=== PATIENT | female | born 1960 | race Caucasian/White ===

== ENCOUNTER → 2017-10-02 09:12 | Outpatient (REF) | payer MEDICARE, SELFPAY ==
[2017-10-02 15:53] LABS: Cholesterol 235 mg/dL (50-200); HDL Cholesterol 54 mg/dL (40-60); LDL CHOLESTEROL 162 mg/dL (<100); Triglyceride 137 mg/dL (30-150)
== END ==
LOC: NCHCN 09:12
PROVIDERS: PCP Nurse Practitioner Family; Visit Provider Nurse Practitioner Family
DX: E78.5 Hyperlipidemia, unspecified (principal); E03.9 Hypothyroidism, unspecified
CPT/HCPCS: 80061; 83721

== ENCOUNTER 2017-10-27 14:00 | Outpatient (CLI) | payer MEDICARE, MEDICAID, SELFPAY ==
--- NOTE | 2017-10-27 12:46 | DI.CT_ITS ---
SYMPTOMS/DIAGNOSIS: TRAUMATIC HEADACHE, G44.[address]: Comparison is made with March,. No intracranial hemorrhage, mass or infarct is seen. The ventricles are normal in size. The visualized portions of the sinuses and mastoid air cells appear clear. IMPRESSION: Negative head CT.
== END 2017-10-27 14:20 ==
PROVIDERS: PCP Nurse Practitioner Family; Visit Provider Nurse Practitioner
DX: G44.309 Post-traumatic headache, unspecified, not intractable (principal)
CPT/HCPCS: 70450

== ENCOUNTER 2017-11-20 08:34 | Emergency (ER) | payer MEDICARE, MEDICAID, SELFPAY ==
[2017-11-20 08:50] VITALS: BP 133/84; PULSE 96; RESP 18; TEMP 37; O2SAT 97
[2017-11-20 09:07] LABS: Bilirubin Negative (Negative); Blood Negative (Negative); Clarity Clear; Glucose Negative (Negative); Ketones Negative (Negative); Leukocyte Esterase Negative (Negative); Nitrite Negative (Negative); Specific Gravity 1.015 (1.005-1.025); Urobilinogen 0.2 EU/dL (Up TO 0.2); pH 6.5 (5-8)
--- NOTE | 2017-11-20 09:10 | DI.CT_ITS ---
SYMPTOM/DIAGNOSIS: FELL, BRUISE, BACK PAIN, MIDLINE TENDERNESS ABDOMEN AND PELVIC CT AND LUMBAR SPINE RECONSTRUCTIONS: CT scan of the abdomen and pelvis was performed without intravenous or oral contrast material. Lumbar spine reconstructions were performed and evaluated on the Siemens work station. Mild dependent atelectatic changes are seen in the bases. No basilar pneumothorax is identified. Lack of IV contrast does limit evaluation of the abdominal organs. The unenhanced liver, spleen, pancreas, gallbladder, bile ducts, kidneys, ureters and bladder are unremarkable. The reproductive organs are unremarkable. There is mild atherosclerosis of the abdominal aorta but no aneurysmal dilatation. No significant abdominal or pelvic adenopathy, ascites or pneumoperitoneum is present. The bowel is unremarkable. The patient appears status post appendectomy. CT reconstructions of the lumbar spine were performed. There are nondisplaced fractures involving the right transverse processes of L 1 and L 2. No other fractures are identified. There are mild degenerative changes in the spine. IMPRESSION: 1. Nondisplaced fractures involving the right L 1 and L 2 transverse processes. 2. No evidence of abdominal or pelvic organ injury as seen on this noncontrast examination. These findings were discussed with the ER on the date of the examination.
[2017-11-20] MEDS: Lidocaine 5% Patch 1 PATCH TP (09:19)
[2017-11-20] MEDS: Ketorolac 30 MG/ML VIAL IM (09:20)
--- NOTE | 2017-11-20 09:40 | NUR.NOTE ---
Ambulated to restrrom as per self Nursing Note:
[2017-11-20 12:10] VITALS: BP 133/84; PULSE 96; RESP 18; TEMP 37; O2SAT 97
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
== END 2017-11-20 12:11 | disposition home or self-care (01) ==
PROVIDERS: Emergency Provider Student in an Organized Health Care Education/Training Program; PCP Nurse Practitioner Family
DX: S32.018A Other fracture of first lumbar vertebra, initial encounter for closed fracture (principal); S32.028A Other fracture of second lumbar vertebra, initial encounter for closed fracture; W10.8XXA Fall (on) (from) other stairs and steps, initial encounter; J44.9 Chronic obstructive pulmonary disease, unspecified; F17.210 Nicotine dependence, cigarettes, uncomplicated
CPT/HCPCS: 96372; 99284; 72131; 74176; 81003; 99285; J1885

== ENCOUNTER 2017-12-01 15:21 | Outpatient (REF) | payer MEDICARE, SELFPAY ==
[2017-12-01 17:07] LABS: TSH 5.34 uIU/mL (0.358-3.74)
== END 2017-12-01 15:41 ==
LOC: NCHCN 15:21
PROVIDERS: PCP Nurse Practitioner Family; Visit Provider Nurse Practitioner Family
DX: E03.9 Hypothyroidism, unspecified (principal)
CPT/HCPCS: 84443

== ENCOUNTER → 2017-12-08 09:36 | Outpatient (BNVA) | payer MEDICARE, MEDICAID, SELFPAY | PROVIDERS: PCP Nurse Practitioner Family; Visit Provider Nurse Practitioner Adult Health | DX: M25.532 Pain in left wrist; I10 Essential (primary) hypertension; J44.9 Chronic obstructive pulmonary disease, unspecified | CPT/HCPCS: 95909; 99203 ==

== ENCOUNTER 2018-05-07 10:02 | Outpatient (REF) | payer MEDICARE, MEDICAID, SELFPAY ==
[2018-05-07 14:10] LABS: Anion Gap 7.3 mmol/L (3-11); BUN 12 mg/dL (7-18); CO2 27.7 mmol/L (21.0-32.0); CREATININE 0.87 mg/dL (0.55-1.02); Chloride 100 mmol/L (98-107); Cholesterol 320 mg/dL (50-200); Glucose 94 mg/dL (70-100); HDL Cholesterol 46 mg/dL (40-60); LDL CHOLESTEROL 238 mg/dL (<100); Potassium 4.5 mmol/L (3.5-5.1); Sodium 135 mmol/L (136-145); TSH 1.15 uIU/mL (0.358-3.74); Triglyceride 132 mg/dL (30-150)
== END 2018-05-07 10:22 ==
LOC: NCHCN 10:02
PROVIDERS: PCP Nurse Practitioner Family; Visit Provider Nurse Practitioner Family
DX: E78.5 Hyperlipidemia, unspecified (principal); E03.9 Hypothyroidism, unspecified; I10 Essential (primary) hypertension
CPT/HCPCS: 80048; 80061; 83721; 84443

== ENCOUNTER 2018-06-08 13:07 | Outpatient (REF) | payer MEDICARE, MEDICAID, SELFPAY ==
[2018-06-08 21:16] LABS: Anion Gap 7.3 mmol/L (3-11); BUN 10 mg/dL (7-18); CO2 28.7 mmol/L (21.0-32.0); CREATININE 0.76 mg/dL (0.55-1.02); Chloride 99 mmol/L (98-107); Glucose 90 mg/dL (70-100); Potassium 4.6 mmol/L (3.5-5.1); Sodium 135 mmol/L (136-145)
== END 2018-06-08 13:27 ==
LOC: NCHCN 13:07
PROVIDERS: PCP Nurse Practitioner Family; Visit Provider Nurse Practitioner Family
DX: R11.0 Nausea (principal)
CPT/HCPCS: 80048

== ENCOUNTER 2018-08-30 09:48 | Outpatient (CLI) | payer MEDICARE, MEDICAID, SELFPAY ==
--- NOTE | 2018-08-30 09:48 | DI.RAD_ITS ---
SYMPTOMS/DIAGNOSIS: EVAL RT KNEE PAIN RIGHT KNEE: Four views. Comparison 12/24/15. There is mild periarticular spurring of the posterior patella. The joint spaces are otherwise unremarkable. The bones are intact. There again seen two screws in the proximal tibia. The soft tissues are unremarkable. IMPRESSION: Minimal degenerative changes of the right knee.
== END 2018-08-30 10:08 ==
PROVIDERS: Referring Provider Nurse Practitioner Family; Visit Provider Student in an Organized Health Care Education/Training Program
DX: M25.561 Pain in right knee (principal); M17.11 Unilateral primary osteoarthritis, right knee; G89.29 Other chronic pain; J44.9 Chronic obstructive pulmonary disease, unspecified; F17.210 Nicotine dependence, cigarettes, uncomplicated; I10 Essential (primary) hypertension
CPT/HCPCS: 99203; 99214; 73564

== ENCOUNTER 2018-09-08 08:45 | Outpatient (CLI) | payer MEDICARE, MEDICAID, SELFPAY ==
--- NOTE | 2018-09-08 09:48 | DI.MRI_ITS ---
SYMPTOM/DIAGNOSIS: RIGHT KNEE PAIN, M25.561 RIGHT KNEE: Routine noncontrast examination was performed. There is artifact from two lag screws in the proximal and anterior tibial tuberosity. There is no evidence of a meniscal tear. The anterior cruciate and posterior cruciate ligaments are intact as are the medial and lateral collateral ligaments, extensor mechanism, medial and lateral retinaculum and popliteus tendon. The muscles show normal signal and size, no significant muscular fatty atrophy is identified. There is a small joint effusion. No significant popliteal cyst is seen. No soft tissue mass is appreciated. There is a cartilaginous defect seen at the junction of the medial and lateral patella facets. The articular cartilage shows mild thinning in the medial femoral tibial joint space. The underlying marrow signal is within normal limits. No evidence of an occult fracture or avascular necrosis. IMPRESSION: 1. 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 2. No evidence of a meniscal or ligament tear 3. Artifact from the patient's orthopaedic hardware in the anterior tibial tuberosity.
== END 2018-09-08 09:05 ==
PROVIDERS: PCP Nurse Practitioner Family; Visit Provider Student in an Organized Health Care Education/Training Program
DX: M25.561 Pain in right knee (principal); M22.41 Chondromalacia patellae, right knee; M25.461 Effusion, right knee
CPT/HCPCS: 73718

== ENCOUNTER → 2018-09-10 09:23 | Outpatient (BNVA) | payer MEDICARE, MEDICAID, SELFPAY | PROVIDERS: PCP Nurse Practitioner Family; Visit Provider Student in an Organized Health Care Education/Training Program | DX: M23.91 Unspecified internal derangement of right knee (principal); J44.9 Chronic obstructive pulmonary disease, unspecified; I10 Essential (primary) hypertension | CPT/HCPCS: 99213 ==

== ENCOUNTER 2018-12-27 10:46 | Outpatient (REF) | payer MEDICARE, MEDICAID, SELFPAY ==
[2018-12-27 23:14] LABS: Epithelial Cells Few HPF (Negative); WBC 0-2 HPF (0-5)
[2018-12-27 23:15] LABS: Bacteria Few HPF (Negative); C & S Indicated? No; Casts Negative LPF (Negative); Crystals Negative HPF (Negative); Mucus Negative (Negative)
== END 2018-12-27 11:06 ==
LOC: NCHCN 10:46
PROVIDERS: PCP Nurse Practitioner Family; Visit Provider Nurse Practitioner Family
DX: R10.9 Unspecified abdominal pain (principal)
CPT/HCPCS: 81015

== ENCOUNTER 2018-12-27 14:48 | Outpatient (CLI) | payer MEDICARE, MEDICAID, SELFPAY ==
[2018-12-27 15:51] LABS: ALT 27 U/L (14-59); AST 16 U/L (15-37); Albumin 3.6 g/dL (3.4-5.0); Alkaline Phosphatase 76 U/L (46-116); Anion Gap 7.2 mmol/L (3-11); BUN 15 mg/dL (7-18); Bilirubin, Total 0.2 mg/dL (0.2-1.0); CO2 28.8 mmol/L (21.0-32.0); CREATININE 0.96 mg/dL (0.55-1.02); Calcium 8.6 mg/dL (8.5-10.1); Chloride 103 mmol/L (98-107); Glucose 94 mg/dL (70-100); Potassium 4.2 mmol/L (3.5-5.1); Sodium 139 mmol/L (136-145); Total Protein 7.1 g/dL (6.4-8.2)
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
[2018-12-27 16:06] LABS: HCT 39.9 % (36.0-46.0); HGB 13.3 g/dL (12.0-15.5); Mean Corp. HGB Concentration 33.3 g/dL (32.0-36.0); Mean Corpuscular Hemoglobin 30.2 pg (27.0-33.0); Mean Corpuscular Volume 90.7 fL (80-95); Platelet Count 333 x1000/uL (130-400); RBC Distribution Width 14.4 % (11.7-14.6); White Blood Cell Count 8.74 k/cumm (4.4-10.8)
[2018-12-27] MEDS: Omnipaque 350 MG/ML 100 ML BTL IJ (16:16)
--- NOTE | 2018-12-27 16:49 | DI.VRAD_ITS ---
PROCEDURE INFORMATION: Exam: CT Abdomen And Pelvis With Contrast Exam date and time: 12/27/2018 4:10 PM Clinical history: 58 years old, female; Abdominal pain; Patient HX: Abd pain, recent abd blunt trauma; Additional info: ? Intra-abd bleed TECHNIQUE: Imaging protocol: Computed tomography of the abdomen and pelvis with intravenous contrast. COMPARISON: CT Specials^TRAUMA ABDOMEN PELVIS WITHOUT CONTRAST (Adult) 11/20/2017 10:28 AM FINDINGS: Lungs: The visualized lung bases are within normal limits. Heart: The visualized portions of the heart and pericardium are unremarkable. Liver: The liver is unremarkable. Gallbladder and bile ducts: The gallbladder is contracted. Pancreas: The pancreas is within normal limits. Spleen: The spleen is unremarkable. Adrenals: The adrenal glands are unremarkable. Kidneys and ureters: The kidneys are within normal limits. Stomach and bowel: There are feces within the colon which are suspicious for constipation. Appendix: The patient is status post appendectomy. Intraperitoneal space: Unremarkable. No free air. No significant fluid collection. Vasculature: There are phleboliths within the pelvis. There are arteriosclerotic changes of the aorta. Lymph nodes: No enlarged lymph nodes. Bladder: The urinary bladder is unremarkable. Reproductive: The uterus and ovaries are within normal limits. Bones/joints: There are degenerative changes of the thoracic and lumbar spines. Soft tissues: There is a tiny fat containing umbilical hernia. IMPRESSION: Suspect some degree of constipation. Osseous findings as above. Dictated and Authenticated by: Jesus Young MD. Ordering:LORENE Clifford MD
== END 2018-12-27 15:08 ==
PROVIDERS: PCP Nurse Practitioner Family; Visit Provider Nurse Practitioner Family
DX: R10.9 Unspecified abdominal pain (principal); I70.0 Atherosclerosis of aorta; K59.00 Constipation, unspecified; S30.1XXD Contusion of abdominal wall, subsequent encounter
CPT/HCPCS: 80053; 85027; 74177; J3490

== ENCOUNTER 2019-01-01 09:59 | Emergency (ER) | payer MEDICARE, MEDICAID, SELFPAY ==
[2019-01-01 10:02] VITALS: BP 161/123; PULSE 112; RESP 20; TEMP 37; O2SAT 96
--- NOTE | 2019-01-01 10:22 | DI.RAD_ITS ---
EXAM: XR HUMERUS RT INDICATION: s/p fall, r/o acute fracture. COMPARISON: LEFT WRIST COMPLETE from 12/24/2015 TECHNIQUE: 2D digital imaging was performed. FINDINGS: Exam is limited by the patient's body habitus. There is a fracture extending mainly transversely through the surgical neck of the humerus. There is some impaction. There is a fracture fragment involving the lesser tuberosity which is mildly displa janice. No fractures are seen distally in the humerus. The visualized portions of the right ribs appea r intact. There is no glenohumeral dislocation. AC joint shows spurring but no abnormal widening. IMPRESSION: Comminuted mildly impacted fracture of the surgical neck of the humerus.
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
[2019-01-01] MEDS: Ibuprofen 600 MG TAB PO (10:26)
--- NOTE | 2019-01-01 10:29 | DI.RAD_ITS ---
EXAM: XR SHOULDER RT COMPLETE 2+V INDICATION: s/p fall onto ice, r/o acute fracture. COMPARISON: No exams were available for comparison TECHNIQUE: 2D digital imaging was performed. FINDINGS: There is a fracture seen extending transversely through the surgical neck of the humerus. The lesse r tuberosities fractured as a separate fragment. There is some impaction. There is no glenohumeral dislocation. No glenoid fracture is visible however, the glenoid is not optimally visualized. AC j oint is not widened. IMPRESSION: Comminuted fracture of the proximal humerus.
--- NOTE | 2019-01-01 11:03 | DI.RAD_ITS ---
EXAM: XR ELBOW RT COMPLETE INDICATION: s/p fall, r/o acute fracture. COMPARISON: No exams were available for comparison TECHNIQUE: 2D digital imaging was performed. FINDINGS: No fracture or dislocation is seen. The joint spaces are well maintained. IMPRESSION: Negative right elbow
[2019-01-01] MEDS: traMADol 50 MG TAB PO (11:34)
[2019-01-01] MEDS: Lidocaine 5% Patch 1 PATCH TP (11:45)
--- NOTE | 2019-01-01 11:58 | DI.VRAD_ITS ---
PROCEDURE INFORMATION: Exam: XR Right Elbow Exam date and time: 01/01/2019 11:01 AM Clinical history: 58 years old, female; Other: S/P fall, R/O acute fracture TECHNIQUE: Imaging protocol: XR Right elbow. Views: 3 or more views. COMPARISON: CR XR HUMERUS RT 01/01/2019 10:49 AM FINDINGS: Bones/joints: Normal. No acute fracture or dislocation. Soft tissues: Normal. IMPRESSION: No acute findings. Dictated and Authenticated by: Kristyn Stephens MD. Ordering:GURPREET Barreto MD
--- NOTE | 2019-01-01 11:59 | DI.VRAD_ITS ---
PROCEDURE INFORMATION: Exam: XR Right Shoulder Exam date and time: 01/01/2019 11:01 AM Clinical history: 58 years old, female; Other: S/P fall onto ice, R/O acute fracture TECHNIQUE: Imaging protocol: XR Right shoulder. Views: 2 or more views. COMPARISON: No relevant prior studies available. FINDINGS: Bones/joints: Nondisplaced fracture humeral neck with displaced fracture lesser tuberosity. No glenohumeral dislocation. Soft tissues: Normal. IMPRESSION: Nondisplaced fracture humeral neck with displaced fracture lesser tuberosity. Dictated and Authenticated by: Kristyn Stephens MD. Ordering:GURPREET Barreto MD
--- NOTE | 2019-01-01 11:59 | DI.VRAD_ITS ---
PROCEDURE INFORMATION: Exam: XR Right Humerus Exam date and time: 01/01/2019 11:01 AM Clinical history: 58 years old, female; Other: S/P fall, R/O acute fracture TECHNIQUE: Imaging protocol: XR Right humerus Views: 2 or more views. COMPARISON: No relevant prior studies available. FINDINGS: Bones/joints: Nondisplaced fracture humeral neck with displaced fracture lesser tuberosity. Soft tissues: Normal. IMPRESSION: Nondisplaced fracture humeral neck with displaced fracture lesser tuberosity. Dictated and Authenticated by: Kristyn Stephens MD. Ordering:GURPREET Barreto MD
[2019-01-01 12:17] VITALS: BP 148/96; PULSE 100; RESP 18; O2SAT 96
== END 2019-01-01 12:11 | disposition home or self-care (01) ==
PROVIDERS: Emergency Provider Physician Assistant; PCP Nurse Practitioner Family
DX: S42.214A Unspecified nondisplaced fracture of surgical neck of right humerus, initial encounter for closed fracture (principal); S42.254A Nondisplaced fracture of greater tuberosity of right humerus, initial encounter for closed fracture; W00.0XXA Fall on same level due to ice and snow, initial encounter; I10 Essential (primary) hypertension; J44.9 Chronic obstructive pulmonary disease, unspecified
CPT/HCPCS: 99284; 73030; 73060; 73080; L3650

== ENCOUNTER → 2019-01-03 09:15 | Outpatient (BNVA) | payer MEDICARE, MEDICAID, SELFPAY | PROVIDERS: PCP Nurse Practitioner Family; Referring Provider Nurse Practitioner Family; Visit Provider Student in an Organized Health Care Education/Training Program | DX: S42.201A Unspecified fracture of upper end of right humerus, initial encounter for closed fracture (principal); W01.0XXA Fall on same level from slipping, tripping and stumbling without subsequent striking against object, initial encounter; J44.9 Chronic obstructive pulmonary disease, unspecified; I10 Essential (primary) hypertension; F17.210 Nicotine dependence, cigarettes, uncomplicated | CPT/HCPCS: 99214 ==

== ENCOUNTER 2019-01-03 09:51 | Outpatient (CLI) | payer MEDICARE, MEDICAID, SELFPAY ==
--- NOTE | 2019-01-03 10:00 | DI.CT_ITS ---
EXAM: 3D RECON ON CT WORKSTATION CLINICAL HISTORY: RT SHOULDER FX TECHNIQUE: The images were acquired in the axial plane. Coronal and sagittal as well as 3D reconstr uctions were performed. COMPARISON: XR SHOULDER RT COMPLETE 2+V from 01/01/2019 CT UPPER EXTREMITY RT WO from 01/03/2019 FINDINGS: There is a fracture seen extending mainly transversely through the surgical neck of the humerus. The bones appear osteoporotic. No underlying lytic lesion is visible. There is mild comminution at the fracture site. The lesser tubercle is fractured as a separate fragment. There is no significant an gulation. There is some impaction. The glenoid and scapula as well as visualized portions of the cl avicle and ribs appear intact. IMPRESSION: Comminuted fracture of the proximal humerus with fracture of the lesser tubercle. No glenoid fractu re or dislocation is seen.
== END 2019-01-03 10:11 ==
PROVIDERS: PCP Nurse Practitioner Family; Visit Provider Student in an Organized Health Care Education/Training Program
DX: S42.351A Displaced comminuted fracture of shaft of humerus, right arm, initial encounter for closed fracture (principal); S42.261A Displaced fracture of lesser tuberosity of right humerus, initial encounter for closed fracture; M81.0 Age-related osteoporosis without current pathological fracture; W01.0XXA Fall on same level from slipping, tripping and stumbling without subsequent striking against object, initial encounter; J44.9 Chronic obstructive pulmonary disease, unspecified; F17.210 Nicotine dependence, cigarettes, uncomplicated; I10 Essential (primary) hypertension
CPT/HCPCS: 76376; 99214; 73200

== ENCOUNTER 2019-01-20 09:36 | Outpatient (CLI) | payer MEDICARE, MEDICAID, SELFPAY ==
--- NOTE | 2019-01-20 09:29 | DI.RAD_ITS ---
EXAM: XR SHOULDER RT COMPLETE 2+V INDICATION: F/U FRACTURE. COMPARISON: XR SHOULDER RT COMPLETE 2+V from 01/01/2019 TECHNIQUE: 2D digital imaging was performed. FINDINGS: There has been no change in the alignment of the proximal humeral fracture given differences in proje ction.
== END 2019-01-20 09:56 ==
PROVIDERS: PCP Nurse Practitioner Family; Referring Provider Nurse Practitioner Family; Visit Provider Student in an Organized Health Care Education/Training Program
DX: S42.294D Other nondisplaced fracture of upper end of right humerus, subsequent encounter for fracture with routine healing (principal); X58.XXXD Exposure to other specified factors, subsequent encounter
CPT/HCPCS: 99213; 73030

== ENCOUNTER 2019-01-25 09:06 | Outpatient (CLI) | payer MEDICARE, MEDICAID, SELFPAY ==
--- NOTE | 2019-01-25 08:08 | DI.US_ITS ---
EXAM: US HERNIA CLINICAL HISTORY: ABD PAIN, R10.9, ? UMBILICAL HERNIA, BLUNT TRAUMA TOAREA TECHNIQUE: Ultrasound performed using standard protocol. FINDINGS: There is an ovoid, hyperechoic area in the area of the recent trauma to the anterior abdominal wall measuring 2.7 x 1.4 x 2.9 cm. This could represent post-traumatic changes in the fat. A fatty contain ing hernia cannot be excluded. No bowel is seen herniating. There is no drainable hematoma or absce ss. IMPRESSION: Question of post-traumatic abnormality at the anterior abdominal wall fat. A fatty containing hernia is also possibility. A CT could be performed for further evaluation if clinically indicated.
== END 2019-01-25 09:26 ==
PROVIDERS: PCP Nurse Practitioner Family; Visit Provider Nurse Practitioner Family
DX: R10.9 Unspecified abdominal pain (principal); S30.1XXA Contusion of abdominal wall, initial encounter
CPT/HCPCS: 76857

== ENCOUNTER → 2019-01-31 14:25 | Outpatient (BNVA) | payer MEDICARE, MEDICAID, SELFPAY | PROVIDERS: PCP Nurse Practitioner Family; Referring Provider Nurse Practitioner Family; Visit Provider Surgery | DX: S30.1XXA Contusion of abdominal wall, initial encounter (principal); W22.8XXA Striking against or struck by other objects, initial encounter; J44.9 Chronic obstructive pulmonary disease, unspecified; F17.210 Nicotine dependence, cigarettes, uncomplicated; I10 Essential (primary) hypertension | CPT/HCPCS: 99201; 99213 ==

== ENCOUNTER 2019-02-24 12:29 | Outpatient (CLI) | payer MEDICARE, MEDICAID, SELFPAY ==
--- NOTE | 2019-02-24 12:01 | DI.RAD_ITS ---
EXAM: XR SHOULDER RT COMPLETE 2+V CLINICAL HISTORY: F/U FRACTURE TECHNIQUE: COMPARISON: XR SHOULDER RT COMPLETE 2+V from 01/20/2019 FINDINGS: Three views were obtained and show previously described proximal humeral fracture with no gross inter marvel change in alignment of the fracture fragments in comparison with examination of January 20. Th ere is mild callus formation at the fracture site. IMPRESSION:
== END 2019-02-24 12:49 ==
PROVIDERS: PCP Nurse Practitioner Family; Referring Provider Nurse Practitioner Family; Visit Provider Student in an Organized Health Care Education/Training Program
DX: S42.351D Displaced comminuted fracture of shaft of humerus, right arm, subsequent encounter for fracture with routine healing; S42.26 Fracture of lesser tuberosity of humerus; W01.0XXD Fall on same level from slipping, tripping and stumbling without subsequent striking against object, subsequent encounter
CPT/HCPCS: 99213; 73030

== ENCOUNTER 2019-07-14 11:35 | Emergency (ER) | payer MEDICARE, MEDICAID, SELFPAY ==
[2019-07-14 11:40] VITALS: BP 121/95; PULSE 106; RESP 16; TEMP 37.2; O2SAT 96
--- NOTE | 2019-07-14 11:45 | DI.RAD_ITS ---
EXAM: 2D digital imaging was performed. CLINICAL HISTORY: No bowel movement for 4 days. COMPARISON: CT CT ABDOMEN PELVIS W from 12/27/2018 TECHNIQUE: Supine views of the abdomen performed. FINDINGS: BOWEL GAS PATTERN: The colon appears redundant. Increased stool is seen throughout the colon. There is no abnormal small the bowel dilatation. There is no gastric distension. The visualized portions of the lung bases appear clear. No free air is seen. CALCIFICATIONS: No radiopaque calcifications. OSSEOUS STRUCTURES: Normal for age. IMPRESSION: 1. Large quantity of fecal material.. Nonobstructive bowel gas pattern. DATA REPOSITORY: RADIATION DOSE DELIVERED:
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
[2019-07-14 13:12] VITALS: PULSE 95; RESP 16; TEMP 37.2; O2SAT 96
[2019-07-14] MEDS: Magnesium Citrate 300 ML BTL 150 ML PO (13:21)
== END 2019-07-14 13:15 | disposition home or self-care (01) ==
PROVIDERS: Emergency Provider Physician Assistant; PCP Nurse Practitioner Family
DX: K59.09 Other constipation (principal); R10.30 Lower abdominal pain, unspecified; I10 Essential (primary) hypertension; J44.9 Chronic obstructive pulmonary disease, unspecified; F17.210 Nicotine dependence, cigarettes, uncomplicated
CPT/HCPCS: 99283; 74019

== ENCOUNTER 2020-08-23 16:00 | Outpatient (CLI) | payer MEDICARE, MEDICAID, SELFPAY ==
--- NOTE | 2020-08-23 10:09 | DI.RAD_ITS ---
Exam(s) XR LUMBAR SPINE COMPLETE EXAM: XR LUMBAR SPINE COMPLETE CLINICAL HISTORY: CHRONIC BACK PAIN, M54.89, 2018 CT SHOWS 2 NONDISPLACED FX L1L2 TRANSVERSE. TECHNIQUE: 2D digital imaging was performed. COMPARISON: No exams were available for comparison FINDINGS: BONES: No fracture or destructive lesion. Vertebral bodies are unremarkable. Saft-sw-khiwdijd facet degenerative changes are seen, greatest at L5-S1.. DISKS: Intervertebral disc spaces are maintained. Minimal endplate osteophytes. ALIGNMENT: Lumbar spinal alignment is within normal limits. SOFT TISSUE: Mild calcification abdominal aorta. Large quantity of stool. IMPRESSION: Mild degenerative changes, greater of the facet joints in the lower lumbar region. DATA REPOSITORY: RADIATION DOSE DELIVERED:
== END 2020-08-23 16:20 ==
PROVIDERS: PCP Nurse Practitioner Family; Visit Provider Nurse Practitioner Family
DX: M47.816 Spondylosis without myelopathy or radiculopathy, lumbar region (principal); Z87.81 Personal history of (healed) traumatic fracture
CPT/HCPCS: 72110

== ENCOUNTER 2020-09-12 09:05 | Outpatient (CLI) | payer MEDICARE, MEDICAID, SELFPAY ==
[2020-09-12 12:23] LABS: Abs Immature Grans 0.03 10^3/uL (0.0-0.06); Absolute Basophil Count 0.08 10^3/uL (0.0-0.2); Absolute Eosinophil Count 0.11 10^3/uL (0.0-0.7); Absolute Lymphocyte Count 2.84 10^3/uL (1.2-3.4); Absolute Monocyte Count 0.76 10^3/uL (0.1-0.8); Absolute Neutrophil Count 2.76 10^3/uL (1.2-6.7); Basophils % 1.2; Eosinophils % 1.7; HCT 39.6 % (36.0-46.0); Immature Grans % 0.5; Lymphocytes % 43.2; MCHC 32.8 % (32.0-36.0); MCV 88.2 fL (80-95); MPV 9.5 fL (8.0-11.0); Monocytes % 11.6; Neutrophils % 41.8; Nucleated RBC 0 %; Platelet Count 316 10^3/uL (130-400); RBC 4.49 10^6/uL (3.93-5.22); RDW 13.2 % (11.7-14.6); RDW-SD 43.2 fL; WBC 6.58 10^3/uL (4.4-10.8)
[2020-09-12 13:15] LABS: ALT 27 U/L (14-59); AST 26 U/L (15-37); Albumin 3.5 g/dL (3.4-5.0); Alkaline Phosphatase 88 U/L (46-116); Anion Gap 10.6 mmol/L (3-11); BUN 8 mg/dL (7-18); Bilirubin, Total 0.3 mg/dL (0.2-1.0); CO2 26.4 mmol/L (21.0-32.0); CREATININE 0.8 mg/dL (0.55-1.02); Calcium 8.6 mg/dL (8.5-10.1); Calculated LDL 188 mg/dL (<100); Chloride 101 mmol/L (98-107); Cholesterol 255 mg/dL (<200); Glucose 67 mg/dL (74-106); HDL Cholesterol 47 mg/dL (40-60); Potassium 3.7 mmol/L (3.5-5.1); Sodium 138 mmol/L (136-145); TSH 3.32 uIU/mL (0.36-3.74); Total Protein 6.5 g/dL (6.4-8.2); Triglyceride 103 mg/dL (<150)
[2020-09-12 13:23] LABS: *AMPHETAMINES SCREEN URINE Negative (Negative); *BARBITURATES SCREEN URINE Negative (Negative); *BENZODIAZEPINES SCREEN URINE Negative (Negative); Cannabinoids THC Negative (Negative); Cocaine Screen,Urine Negative (Negative); METHADONE URINE SCREEN Negative (Negative); OPIATES URINE SCREEN Negative (Negative)
[2020-09-12 13:24] LABS: Tricyclic Antidepressants Negative (Negative)
== END 2020-09-12 09:06 | disposition home or self-care (01) ==
LOC: LOS 09:07
PROVIDERS: PCP Nurse Practitioner Family; Visit Provider Nurse Practitioner Psychiatric/Mental Health
DX: F32.1 Major depressive disorder, single episode, moderate (principal); Z79.899 Other long term (current) drug therapy
CPT/HCPCS: 36415; 80053; 80061; 80307; 80361; 80362; 80365; 84443; 85025

== ENCOUNTER 2020-09-17 16:01 | Outpatient (REF) | payer MEDICARE, MEDICAID, SELFPAY | END 2020-09-17 16:02 | disposition home or self-care (01) | LOC: NCHCN 16:01 | PROVIDERS: PCP Nurse Practitioner Family; Visit Provider Nurse Practitioner Family | DX: N39.0 Urinary tract infection, site not specified (principal) | CPT/HCPCS: 87077; 87086; 87186 ==

== ENCOUNTER 2020-10-10 01:44 | Outpatient (CLI) | payer MEDICARE, MEDICAID, SELFPAY ==
--- NOTE | 2020-10-10 11:25 | DI.MAMMO_ITS ---
Exam(s) MAMMO SCREENING EXAM: MAMMO SCREENING CLINICAL HISTORY: SCREENING, Z12.39. TECHNIQUE: Bilateral full field digital CC and MLO mammographic images were obtained with 3D tomosyn thesis and utilizing computer aided detection (CAD). COMPARISON: Prior mammograms dating back to 2013, the most recent being July 2017. FINDINGS: There has been no significant change in the appearance and distribution of the fibroglandular tissue. There are no new spiculated masses nor malignant appearing microcalcification groups. Benign microcalcifications are unchanged There is no significant architectural distortion nor skin thickening-retraction. IMPRESSION: No radiographic evidence of malignancy. BI-RADS Category 1 - Negative Breast Density - Category B - Scattered areas of fibroglandular density Breast density Category C or D implies that the patient has dense breast tissue. Dense breast tissue can make it harder to find cancer on a mammogram. Dense breast tissue is also associated with an incr eased risk of breast cancer. This information about the result of the mammogram report was provided to the patient to raise their awareness. Use this report when you speak with the patient about their risks for breast cancer, which includes their family history. At that time, you may recommend additional screening tests (Ultrasoun d or MRI) as these tests may add significant information. A negative radiographic report should not delay biopsy if a dominant or clinically suspicious mass is present. Up to ten percent of cancers are not identified on mammography. A negative report may reinforce clinical impression. Adenosis and dense breasts may obscure an underlying neoplasm. False positive reports average 6 to 10%. Patient will receive a letter notifying them of these results.
== END 2020-10-10 02:04 ==
PROVIDERS: PCP Nurse Practitioner Family; Visit Provider Nurse Practitioner Family
DX: Z12.31 Encounter for screening mammogram for malignant neoplasm of breast (principal)
CPT/HCPCS: 77063; 77067

== ENCOUNTER 2020-10-17 10:45 | Outpatient (REF) | payer MEDICARE, MEDICAID, SELFPAY ==
--- NOTE | 2020-10-17 08:30 | PAPFT_PTH ---
PATIENT: Magdalene Shi LOC: [facility] U#:[id number] AGE/SX: 59/F ROOM: RE10/17/[address]: Venessa Schneider : 1960 BED: DIS: 10/17/2020 SPEC #: [id number] RECD: 10/18/20 13:16 STATUS: ISIDRO REJeanna #: [id number] IVAN: 10/17/20 08:[address]: Venessa Schneider DEPT: [facility] Cytology RECD BY: Le Graham Tissues: 1 - CX/ENDOCX FOR PAP SMEARS Procedures: PAP THIN PREP/UVM Screening HPV DNA PROBE Comments: [id number]
[2020-10-19 14:34] LABS: Chlamydia Result Negative (Negative); GC Result Negative (Negative)
== END 2020-10-17 10:46 | disposition home or self-care (01) ==
LOC: NCHCN 10:45
PROVIDERS: PCP Nurse Practitioner Family; Visit Provider Nurse Practitioner Family
DX: Z01.419 Encounter for gynecological examination (general) (routine) without abnormal findings (principal); Z11.3 Encounter for screening for infections with a predominantly sexual mode of transmission; H10.32 Unspecified acute conjunctivitis, left eye; Z11.51 Encounter for screening for human papillomavirus (HPV); Z12.4 Encounter for screening for malignant neoplasm of cervix
CPT/HCPCS: 87491; 87591; 88142; 87624

== ENCOUNTER 2020-11-28 12:08 | Outpatient (REF) | payer MEDICARE, MEDICAID, SELFPAY ==
[2020-11-28 14:48] LABS: ALT 29 U/L (14-59); AST 20 U/L (15-37); HDL Cholesterol 55 mg/dL (40-60); LDL CHOLESTEROL 176 mg/dL (<100)
[2020-11-28 15:13] LABS: Creatine Kinase 116 U/L (26-192)
== END 2020-11-28 12:09 | disposition home or self-care (01) ==
LOC: NCHCN 12:08
PROVIDERS: PCP Nurse Practitioner Family; Visit Provider Nurse Practitioner Family
DX: E78.5 Hyperlipidemia, unspecified (principal)
CPT/HCPCS: 82550; 83721; 83718; 84450; 84460

== ENCOUNTER 2020-12-02 15:12 | Emergency (ER) | payer MEDICARE, MEDICAID, SELFPAY ==
[2020-12-02 15:14] VITALS: BP 145/100; PULSE 90; RESP 18; TEMP 36.7; O2SAT 99
--- NOTE | 2020-12-02 15:15 | DI.RAD_ITS ---
Exam(s) XR FOOT RT COMPLETE EXAM: XR FOOT RT COMPLETE CLINICAL HISTORY: pain post dropping item on foot, metatarsal. TECHNIQUE: 2D digital imaging was performed of the right foot. Three images were obtained. AP, obl ique and lateral views were obtained. COMPARISON: CR RIGHT FOOT COMPLETE from 11/07/2013 FINDINGS: BONES: No acute fracture is present. No bony destructive lesion is seen. There is a small plantar taniya caneal spur. JOINTS: No dislocation present. Mild degenerative changes are seen at the 1st MTP joint. SOFT TISSUE: Normal. IMPRESSION: No acute fracture or dislocation. DATA REPOSITORY: RADIATION DOSE DELIVERED:
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
[2020-12-02] MEDS: Ibuprofen 600 MG TAB PO (16:43)
--- NOTE | 2020-12-02 17:10 | DI.VRAD_ITS ---
PROCEDURE INFORMATION: Exam: XR Right Foot Exam date and time: 12/02/2020 3:47 PM Age: 59 years old Clinical indication: Other: Pain post dropping item on foot, metatarsal TECHNIQUE: Imaging protocol: XR Right foot. Views: 3 or more views. COMPARISON: MR FOOT^FOREFOOT 09/08/2018 9:16 AM FINDINGS: Bones/joints: No evidence for a fracture or other osseous lesion. Alignment is anatomic. The joint spaces are maintained. Os perineum. Calcaneal spur. Soft tissues: Unremarkable. IMPRESSION: Unremarkable radiographic study. No fracture identified. Dictated and Authenticated by: Vickey Landrum MD. Ordering:SOPHIA Lujan MD
--- NOTE | 2020-12-02 18:45 | NUR.NOTE ---
ortho boot applied to the right foot Nursing Note:
--- NOTE | 2020-12-02 18:46 | NUR.NOTE ---
ortho shoe size mens small applied to the right foot Nursing Note:
== END 2020-12-02 17:09 | disposition home or self-care (01) ==
PROVIDERS: Emergency Provider Registered Nurse Emergency; PCP Nurse Practitioner Family
DX: S90.31XA Contusion of right foot, initial encounter (principal); W20.8XXA Other cause of strike by thrown, projected or falling object, initial encounter
CPT/HCPCS: 99283; 73630

== ENCOUNTER 2021-02-13 16:19 | Outpatient (REF) | payer MEDICARE, MEDICAID, SELFPAY ==
[2021-02-15 11:46] LABS: COVID-19 RT-PCR UVMMC Result Negative (Negative)
== END 2021-02-13 16:20 | disposition home or self-care (01) ==
LOC: LBN 16:19
PROVIDERS: PCP Nurse Practitioner Family; Visit Provider Physician Assistant Medical
DX: Z20.822 Contact with and (suspected) exposure to COVID-19 (principal); R09.89 Other specified symptoms and signs involving the circulatory and respiratory systems
CPT/HCPCS: U0003; U0005

== ENCOUNTER → 2021-06-07 00:46 | Outpatient (CLI) | payer OTHER, MEDICAID, SELFPAY | PROVIDERS: PCP Nurse Practitioner Family; Visit Provider Nurse Practitioner Family ==

== ENCOUNTER 2021-06-25 20:28 | Outpatient (REF) | payer OTHER, MEDICAID, SELFPAY ==
[2021-06-26 15:31] LABS: COVID-19 RT-PCR UVMMC Result Negative (Negative)
== END 2021-06-25 20:29 | disposition home or self-care (01) ==
LOC: LBN 20:28
PROVIDERS: PCP Nurse Practitioner Family; Visit Provider Nurse Practitioner Family
DX: J34.89 Other specified disorders of nose and nasal sinuses (principal); Z20.822 Contact with and (suspected) exposure to COVID-19
CPT/HCPCS: U0003; U0005

== ENCOUNTER 2021-07-10 17:07 | Emergency (ER) | payer OTHER, MEDICAID, SELFPAY ==
[2021-07-10 17:09] VITALS: BP 141/65; PULSE 96; RESP 18; TEMP 37.1; O2SAT 96
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
--- NOTE | 2021-07-10 17:30 | RT.EKG_ITS ---
APPROVED REPORT Exam: Resting ECG Reason for Exam: Midepigastric pain Patient Location: E HR:89 bpm ECG Measurements Heart Rate 89 AXIS LA 143 P 50 QRSd 71 QRS 21 QT 343 T 27 QTc 417 Conclusion Sinus rhythm...normal P axis, V-rate 60- 99 sinus rhythm, normal axis, normal intervals, nonischemic
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
[2021-07-10 17:57] LABS: Abs Immature Grans 0.05 10^3/uL (0.0-0.06); Absolute Basophil Count 0.08 10^3/uL (0.0-0.2); Absolute Eosinophil Count 0.11 10^3/uL (0.0-0.7); Absolute Lymphocyte Count 3.23 10^3/uL (1.2-3.4); Absolute Monocyte Count 0.83 10^3/uL (0.1-0.8); Absolute Neutrophil Count 4.91 10^3/uL (1.2-6.7); Basophils % 0.9; Eosinophils % 1.2; HCT 44.4 % (36.0-46.0); HGB 14.8 g/dL (11.2-15.7); Immature Grans % 0.5; Lymphocytes % 35.1; MCHC 33.3 % (32.0-36.0); MCV 90 fL (80-95); MPV 8.9 fL (8.0-11.0); Neutrophils % 53.3; Platelet Count 354 10^3/uL (130-400); RBC 4.93 10^6/uL (3.93-5.22); RDW 13.1 % (11.7-14.6); RDW-SD 43.6 fL; WBC 9.21 10^3/uL (4.4-10.8)
[2021-07-10 18:01] LABS: Bilirubin Negative (Negative); Blood Trace-lysed (Negative); Clarity Clear (Clear); Glucose Negative (Negative); Ketones Negative (Negative); Leukocyte Esterase Small (Negative); Nitrite Negative (Negative); Urobilinogen 0.2 EU/dL (Up TO 0.2)
[2021-07-10 18:09] LABS: Bacteria Few HPF (Negative); Epithelial Cells Moderate HPF (Negative); Other Cells Few Yeast (Negative); RBC 0-2 HPF (0-2)
[2021-07-10 18:10] LABS: C & S Indicated? Yes; Crystals Negative HPF (Negative); Mucus Negative (Negative)
[2021-07-10 18:14] LABS: Troponin I < 50 ng/L (<or=60)
[2021-07-10] MEDS: LORazepam 0.5 MG TAB PO ×2 (18:15→21:05)
[2021-07-10 18:18] LABS: ALT 22 U/L (14-59); AST 20 U/L (15-37); Albumin 3.8 g/dL (3.4-5.0); Alkaline Phosphatase 108 U/L (46-116); BUN 13 mg/dL (7-18); Bilirubin, Total 0.3 mg/dL (0.2-1.0); Calcium 8.7 mg/dL (8.5-10.1); Chloride 105 mmol/L (98-107); Estimated GFR 56.95 (mL/min/1.73m2); Glucose 77 mg/dL (74-106); Potassium 3.6 mmol/L (3.5-5.1); Sodium 140 mmol/L (136-145); Total Protein 7.6 g/dL (6.4-8.2)
[2021-07-10 18:19] LABS: *AMPHETAMINES SCREEN URINE Negative (Negative); *BARBITURATES SCREEN URINE Negative (Negative); *BENZODIAZEPINES SCREEN URINE Negative (Negative); Cannabinoids THC Negative (Negative); Cocaine Screen,Urine Positive (Negative); METHADONE URINE SCREEN Negative (Negative); OPIATES URINE SCREEN Negative (Negative)
[2021-07-10 18:20] LABS: Tricyclic Antidepressants Negative (Negative)
[2021-07-10 18:37] LABS: Acetaminophen < 2 ug/mL (10-30)
--- NOTE | 2021-07-10 19:30 | DI.RAD_ITS ---
Exam(s) XR CERVICAL SP SOLORZANO TRAUMA 2-3V EXAM: XR CERVICAL SP SOLORZANO TRAUMA 2-3V CLINICAL HISTORY: C-Spine Pain. TECHNIQUE: 2D digital imaging was performed. Three views were obtained. COMPARISON: No exams were available for comparison FINDINGS: BONES: No fracture or destructive lesion. There are endplate osteophytes from C3-4 through C5-6 C7. DISKS: There is disc space narrowing at C5-6 and C6-C7. Facet arthropathy is present. ALIGNMENT: Cervical spinal alignment is within normal limits. The odontoid and atlantoaxial articulat ions are normal. SOFT TISSUE: Normal. The lung apices are clear. IMPRESSION: Moderate degenerative changes in the cervical spine. DATA REPOSITORY: RADIATION DOSE DELIVERED:
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
[2021-07-10 21:19] LABS: ETHANOL BLOOD 25.6 mg/dL (<10)
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
== END 2021-07-10 23:26 | disposition home or self-care (01) ==
PROVIDERS: Emergency Provider Registered Nurse Emergency; PCP Nurse Practitioner Family
DX: R10.13 Epigastric pain (principal); F31.9 Bipolar disorder, unspecified; F60.3 Borderline personality disorder; S40.022A Contusion of left upper arm, initial encounter; Y04.2XXA Assault by strike against or bumped into by another person, initial encounter; F10.129 Alcohol abuse with intoxication, unspecified; Y90.5 Blood alcohol level of 100-119 mg/100 ml; M54.2 Cervicalgia
CPT/HCPCS: 80053; 80307; 93005; 99285; 72040; 74022; 80320; 80329; 81003; 81015; 84484; 85025; 87086; 93010; 99284

== ENCOUNTER → 2021-07-17 19:09 | Outpatient (CLI) | payer OTHER, MEDICAID, SELFPAY ==
--- NOTE | 2021-07-17 | DI.RAD_ITS ---
Exam(s) XR KNEE RT 3V AP,LAT,JO EXAM: XR KNEE RT 3V AP,LAT,JO CLINICAL HISTORY: RT KNEE PAIN, M25.561, S/P FALL, SWELLING, DECREASED FLEXION, PAIN W/AMB TECHNIQUE: COMPARISON: CR XR knee RT 4V AP,lat,jo,pat from 08/30/2018 FINDINGS: Three views were obtained. There are fixation screws of the proximal tibia unchanged in alignment in comparison with prior examination of August 2018. There does not appear to be a significant knee join t effusion. No other bony or soft tissue abnormality seen. IMPRESSION: RADIATION DOSE DELIVERED: Total DLP
== END ==
PROVIDERS: PCP Nurse Practitioner Family; Visit Provider Nurse Practitioner Family
DX: M25.561 Pain in right knee (principal); M25.461 Effusion, right knee
CPT/HCPCS: 73562

== ENCOUNTER 2021-11-30 08:31 | Emergency (ER) | payer OTHER, MEDICAID, SELFPAY ==
--- NOTE | 2021-11-30 08:30 | DI.RAD_ITS ---
Exam(s) XR ANKLE RT COMPLETE XR TIB/FIB RT XR FOOT RT COMPLETE EXAM: XR TIB/FIB RT and XR foot RT complete and XR ankle RT complete CLINICAL HISTORY: fall. TECHNIQUE: 2D digital imaging was performed of the right foot, ankle tibia and fibula. Eight images were obtained. AP oblique and lateral views were obtained. COMPARISON: CR,XR XR FOOT RT COMPLETE from 11/30/2021 CR,XR XR ANKLE RT COMPLETE from 11/30/2021 FINDINGS: BONES: No acute fracture is present. Postsurgical changes are seen in the proximal tibia. There is an oblique mildly displaced fracture of the distal fibula at the level of the ankle mortise. There i s posterior angulation of the distal fracture. No bony destructive lesion is seen. There is a small plantar calcaneal spur. Mild degenerative changes are seen in the foot. SOFT TISSUE: There is soft tissue swelling laterally around the ankle. IMPRESSION: There is a mildly displaced fracture of the lateral malleolus with overlying soft tissue swelling. DATA REPOSITORY: RADIATION DOSE DELIVERED:
[2021-11-30 08:33] VITALS: BP 158/98; PULSE 101; RESP 18; TEMP 36.8; O2SAT 98
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
[2021-11-30] MEDS: Ibuprofen 600 MG TAB PO (08:50)
[2021-11-30] MEDS: Acetaminophen 325 MG TAB 650 MG PO (08:50)
--- NOTE | 2021-11-30 09:41 | DI.VRAD_ITS ---
PROCEDURE INFORMATION: Exam: XR Right Foot Exam date and time: 11/30/2021 9:01 AM Age: 60 years old Clinical indication: Injury or trauma; Fall; Sprain or strain; Foot; Right TECHNIQUE: Imaging protocol: Radiologic exam of the Right foot. Views: 3 or more views. COMPARISON: CR XR FOOT RT COMPLETE 12/02/2020 3:45 PM FINDINGS: Bones/joints: No fractures or suspicious osseous lesions are identified. There are bipartite medial and lateral sesamoids. Os naviculare and os peroneum are noted. Alignment is anatomic. There are changes of mild osteoarthritis in the 1st metatarsophalangeal joint, with mild joint space narrowing and small marginal osteophytes. There is a moderate-sized plantar calcaneal spur. Soft tissues: Unremarkable. IMPRESSION: No fracture or malalignment in the right foot. Dictated and Authenticated by: Marianela Feliz MD. Ordering:SATYA Gaona MD
--- NOTE | 2021-11-30 09:43 | DI.VRAD_ITS ---
PROCEDURE INFORMATION: Exam: XR Right Ankle Exam date and time: 11/30/2021 8:57 AM Age: 60 years old Clinical indication: Injury or trauma; Fall; Sprain or strain; Ankle; Right TECHNIQUE: Imaging protocol: Radiologic exam of the Right ankle. Views: 3 or more views. COMPARISON: CR RIGHT ANKLE COMPLETE 03/26/2015 6:58 PM FINDINGS: Bones/joints: There is an oblique mildly displaced fracture of the distal fibular metadiaphysis (lateral malleolus). Alignment is anatomic. Joint spaces are maintained. The ankle mortise is intact. There is a moderate-sized plantar calcaneal spur. Soft tissues: Localized severe soft tissue swelling overlying the lateral malleolus. IMPRESSION: Mildly displaced fracture of the right lateral malleolus with severe overlying soft tissue swelling. Dictated and Authenticated by: Marianela Feliz MD. Ordering:SATYA Gaona MD
--- NOTE | 2021-11-30 09:44 | DI.VRAD_ITS ---
PROCEDURE INFORMATION: Exam: XR Right Tibia and Fibula Exam date and time: 11/30/2021 8:57 AM Age: 60 years old Clinical indication: Injury or trauma; Fall; Sprain or strain; Lower leg; Right TECHNIQUE: Imaging protocol: Radiologic exam of the Right tibia and fibula. Views: 2 views. COMPARISON: CR XR ANKLE RT COMPLETE 11/30/2021 8:57 AM FINDINGS: Bones/joints: Again noted is a mildly displaced fracture of the distal fibular metadiaphysis (lateral malleolus of the ankle). No additional fractures are identified. Two partially threaded cannulated screws are noted in the proximal tibial metadiaphysis. Soft tissues: Severe soft tissue swelling overlying the lateral malleolus. IMPRESSION: Mildly displaced fracture of the distal right fibular metadiaphysis (lateral malleolus) with severe overlying soft tissue swelling. Dictated and Authenticated by: Marianela Feliz MD. Ordering:SATYA Gaona MD
== END 2021-11-30 10:01 | disposition home or self-care (01) ==
PROVIDERS: Emergency Provider Nurse Practitioner Family; PCP Nurse Practitioner Family
DX: S82.61XA Displaced fracture of lateral malleolus of right fibula, initial encounter for closed fracture (principal); J45.909 Unspecified asthma, uncomplicated; F17.200 Nicotine dependence, unspecified, uncomplicated; Z79.51 Long term (current) use of inhaled steroids; W19.XXXA Unspecified fall, initial encounter
CPT/HCPCS: 29515; 99284; 73590; 73610; 73630

== ENCOUNTER 2021-12-10 10:50 | Outpatient (CLI) | payer OTHER, MEDICAID, SELFPAY ==
--- NOTE | 2021-12-10 10:30 | DI.RAD_ITS ---
Exam(s) XR ANKLE RT COMPLETE EXAM: XR ANKLE RT COMPLETE CLINICAL HISTORY: ANKLE FX F/U. TECHNIQUE: 2D digital imaging was performed. COMPARISON: CR,XR XR ANKLE RT COMPLETE from 11/30/2021 FINDINGS: 3 views Again noted is oblique fracture distal fibula. This appears essentially unchanged from the prior pieter ges of 11/30/2021. Is no widening of the ankle mortise on these nonstress views. Talar dome unremar kable. Moderate-large inferior calcaneal spur is noted with adjacent corticated calcification in the plantar fascia. IMPRESSION: DATA REPOSITORY: RADIATION DOSE DELIVERED:
== END 2021-12-10 10:51 | disposition home or self-care (01) ==
LOC: DIORS 10:50
PROVIDERS: PCP Nurse Practitioner Family; Referring Provider Nurse Practitioner Family; Visit Provider Student in an Organized Health Care Education/Training Program
DX: S82.891A Other fracture of right lower leg, initial encounter for closed fracture; W55.09XA Other contact with cat, initial encounter
CPT/HCPCS: 99214; 73610

== ENCOUNTER 2022-01-01 19:45 | Outpatient (REF) | payer OTHER, MEDICAID, SELFPAY ==
[2022-01-01 15:37] LABS: HCT 46.8 % (36.0-46.0); HGB 15.7 g/dL (11.2-15.7); MCH 31.8 pg (27.0-33.0); MCHC 33.5 % (32.0-36.0); MCV 95 fL (80-95); MPV 9.6 fL (8.0-11.0); Platelet Count 341 10^3/uL (130-400); RBC 4.94 10^6/uL (3.93-5.22); RDW 13.2 % (11.7-14.6); WBC 9.66 10^3/uL (4.4-10.8)
[2022-01-01 16:04] LABS: ALT 28 U/L (14-59); AST 27 U/L (15-37); Albumin 4.4 g/dL (3.4-5.0); Alkaline Phosphatase 124 U/L (46-116); Anion Gap 10.5 mmol/L (3-11); BUN 13 mg/dL (7-18); Bilirubin, Total 0.5 mg/dL (0.2-1.0); CO2 25.5 mmol/L (21.0-32.0); CREATININE 0.8 mg/dL (0.55-1.02); Calcium 9.7 mg/dL (8.5-10.1); Calculated LDL 241 mg/dL (<100); Chloride 98 mmol/L (98-107); Cholesterol 334 mg/dL (<200); Estimated GFR 84.82 (mL/min/1.73m2); Glucose 85 mg/dL (74-106); HDL Cholesterol 67 mg/dL (40-60); Potassium 4.4 mmol/L (3.5-5.1); Sodium 134 mmol/L (136-145); Total Protein 7.9 g/dL (6.4-8.2); Triglyceride 132 mg/dL (<150)
[2022-01-02 08:39] LABS: GGT 39 U/L (5-55)
== END 2022-01-01 19:46 | disposition home or self-care (01) ==
LOC: NCHCN 19:45
PROVIDERS: PCP Nurse Practitioner Family; Visit Provider Nurse Practitioner Family
DX: E78.5 Hyperlipidemia, unspecified (principal); R79.89 Other specified abnormal findings of blood chemistry; I10 Essential (primary) hypertension; F19.10 Other psychoactive substance abuse, uncomplicated; R53.83 Other fatigue
CPT/HCPCS: 80053; 80061; 85027; 82977

== ENCOUNTER 2022-01-14 10:15 | Outpatient (CLI) | payer OTHER, MEDICAID, SELFPAY ==
--- NOTE | 2022-01-14 10:00 | DI.RAD_ITS ---
Exam(s) XR ANKLE RT COMPLETE EXAM: XR ANKLE RT COMPLETE CLINICAL HISTORY: right ankle f/u. TECHNIQUE: 2D digital imaging was performed of the right ankle. Three images were obtained. AP, la teral and oblique views were obtained. COMPARISON: CR XR ANKLE RT COMPLETE from 12/10/2021 FINDINGS: BONES: There has been no change in alignment of the distal right fibular fracture. Callus formation h as developed about the fracture consistent with some interval healing. No bony destructive lesion is seen. There is a some for on the plantar surface of the calcaneus. JOINTS: The ankle mortise is normally aligned. SOFT TISSUE: Soft tissue swelling laterally. IMPRESSION: Healing distal right fibular fracture. DATA REPOSITORY: RADIATION DOSE DELIVERED:
== END 2022-01-14 10:16 | disposition home or self-care (01) ==
LOC: DIORS 10:15
PROVIDERS: PCP Nurse Practitioner Family; Referring Provider Nurse Practitioner Family; Visit Provider Student in an Organized Health Care Education/Training Program
DX: S82.891A Other fracture of right lower leg, initial encounter for closed fracture (principal); X58.XXXA Exposure to other specified factors, initial encounter
CPT/HCPCS: 99213; 73610

== ENCOUNTER 2022-02-25 13:22 | Outpatient (CLI) | payer OTHER, MEDICAID, SELFPAY ==
--- NOTE | 2022-02-25 13:15 | DI.RAD_ITS ---
Exam(s) XR ANKLE RT COMPLETE EXAM: XR ANKLE RT COMPLETE CLINICAL HISTORY: right ankle fx f/u. TECHNIQUE: 2D digital imaging was performed of the right ankle. Three images were obtained. AP, la teral and oblique views were obtained. COMPARISON: CR XR ANKLE RT COMPLETE from 01/14/2022 FINDINGS: BONES: There has been no change in alignment of the distal fibular fracture. There has been continue d interval healing present. The fracture line is still visualized. No new fracture is identified. No bony destructive lesion is seen. There is a plantar calcaneal spur. JOINTS: The ankle mortise is normally aligned. SOFT TISSUE: Normal. IMPRESSION: Healing distal right fibular fracture. DATA REPOSITORY: RADIATION DOSE DELIVERED:
== END 2022-02-25 13:23 | disposition home or self-care (01) ==
LOC: DIORS 13:22
PROVIDERS: PCP Nurse Practitioner Family; Referring Provider Nurse Practitioner Family; Visit Provider Student in an Organized Health Care Education/Training Program
DX: S82.891D Other fracture of right lower leg, subsequent encounter for closed fracture with routine healing (principal); X58.XXXD Exposure to other specified factors, subsequent encounter
CPT/HCPCS: 99213; 73610

== ENCOUNTER → 2022-03-13 08:02 | Outpatient (BNVA) | payer OTHER, MEDICAID, SELFPAY | PROVIDERS: PCP Nurse Practitioner Family; Referring Provider Nurse Practitioner Family; Visit Provider Nurse Practitioner Adult Health | DX: R51.9 Headache, unspecified (principal); F39 Unspecified mood [affective] disorder; Z87.820 Personal history of traumatic brain injury; F17.210 Nicotine dependence, cigarettes, uncomplicated; I10 Essential (primary) hypertension | CPT/HCPCS: 64405; 99204; 99214 ==

== ENCOUNTER 2022-03-21 00:29 | Outpatient (CLI) | payer OTHER, MEDICAID, SELFPAY ==
--- OUTSIDE RECORDS SUMMARY | 2022-03-21 00:32 | XMS_ITS ---
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 Active 57584715 Problem Paresthesia 782.0 Active 74287446 Problem Meralgia 355.1 Active 82098381 paresthetica Problem Low back pain 724.2 Active 031557 007 Problem Carpal tunnel 354.0 Active 222790 09 syndrome Problem HEPATITIS C CARRIER V02.62 Active 170886137 Problem Lumbar spondylosis M47.816 Active 2 15919368 Problem 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 Active 309 40033 Problem Cervical radiculitis 723.4 Active 48481183 Problem Cervical spondylosis 721.1 Active 51042283 with myelopathy Problem Abnormal findings on 793.99 Active 241930376 radiological or other exams of body structure, NEC 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 ALLERGIES Substance Reaction Event Type Date Status Codeine, Sonata Unknown Non Drug Allergy Oct, Active Morphine Sulfate Unknown Non Drug Allergy Oct, Active ENCOUNTERS Encounter Location Date Diagnosis [address] Mar, [facility] [address] [place] [id number] Jan, [facility] [address] [place] [id number] Nov, [facility] [address] [place], [place] [id number] [address] 17 Oct, [address] [place], [place] [id number] [address] 16 Oct, 2020 Lumbar spon dylosis M47.[address] [place], [place] [id number] [address] Oct, [facility] [address] [place] [id number] Oct, Lumbar spondyl osis M47.816 [facility] [address] [place] [id number] [facility] [address] [place] [address] Oct, Carpal tunnel syndrome [place], [place] [id number] [facility] [address] [place] [address] Oct, [place] [id number] [facility] [address] [place] [address] Aug, [place], [place] [id number] [facility] [address] [place] [address] May, [place], [place] [id number] [facility] [address] [place] [address] Apr, [place], [place] [id number] [facility] [address] [place] [address] Mar, [place], [place] [id number] [facility] [address] [place] [address] Mar, Cervic al spondylosis with [facility] myelopathy 721.1 ; Cervical [place] radiculitis 723. 4 ; [id number] Abnormal finding s on radiological or other exams of body structur e, NEC 793.99 ; Meralgi a paresthetica 355 .1 ; Paresthesia 782. 0 ; HEPATITIS C APARICIO IER V02.62 ; Cryoglobulinem ia 273.2 ; Peripheral neuro benja 356.9 ; Ataxia 438.84 ; Low back pain 724.2 and D JASMINA KNEE 715.[address] Feb, [address] [place], [place] [id number] [facility] [address] [place] [address] Feb, Cervic al spondylosis with [facility] myelopathy 721.1 ; Cervical [place] radiculitis 723. 4 ; [id number] Abnormal finding s on radiological or other exams of body structur e, NEC 793.99 ; Meralgi a paresthetica 355 .1 ; Paresthesia 782. 0 ; HEPATITIS C APARICIO IER V02.62 ; Cryoglobulinem ia 273.2 ; Peripheral neuro benja 356.9 ; Ataxia 438.84 and Low back pain 724.2 [facility] [address] [place] [address] Dec, [facility] Road [address] [place], [place] [id number] [facility] [address] [place] [address] Dec, [facility] [address] Suite [place], [place] [id number] [facility] [address] [place] [address] Nov, [facility] [address] [place], [place] [id number] [facility] [address] [place] [address] Nov, Meralg ia paresthetica 355.1 [facility] ; Paresthesia 78 2.0 ; [place] HEPATITIS C APARICIO IER V02.62 [id number] ; Cryoglobulinem ia 273.2 ; Peripheral neuro benja 356.9 and Ataxia 438.8 4 IMMUNIZATIONS No Known Immunizations SOCIAL HISTORY Never Assessed REASON FOR REFERRAL FUNCTIONAL STATUS PLAN OF CARE VITAL SIGNS Height 63 in 2020-10-17 Height N/A in 2012-03-11 Height 63 in 2011-12-16 Weight 194 lbs 2020-10-17 Weight 145 lbs 2012-03-11 Weight 144 lbs 2011-12-16 Heart Rate 65 /min 2020-10-17 Heart Rate 88 /min 2012-03-11 Heart Rate 84 /min 2011-12-16 Oximetry 98 2020-10-17 BMI 34.36 kg/m2 2020-10-17 BMI 25.68 kg/m2 2012-03-11 BMI 25.51 kg/m2 2011-12-16 Blood pressure systolic 114 mm Hg 2020-10-17 Blood pressure diastolic 80 mm Hg 2020-10-17 MEDICATIONS Medication Instructions Dosage Frequency Start End Duration Statu s Date Date Mobic 7.5 MG Orally Once a 1 tablet 24h 30 day(s) Ac tive day Ambien 10 MG Orally Once a 1 tablet at 24h A ctive day bedtime as needed Gabapentin 800 MG Orally Once a 1 tablet 24h 30 day( s) Active day Nystatin 879256 Mouth/Throat 4 ml 6h 30 day(s) A ctive UNIT/ML Four times a day Ventolin HFA 108 Inhalation 1 puff as 4h Ac tive (90 Base) MCG/ACT every 4 hrs needed Venlafaxine HCl Orally Once a 1 tablet 24h 30 day(s) Active 100 MG day with food Minipress 1 MG Orally Once a 1 capsule 24h 30 day(s) Active day at bedtime Atorvastatin Orally Once a 1 tablet 24h 30 day(s) Ac tive Calcium 20 MG day Omeprazole 20 MG Orally Once a 1 capsule 24h 30 day( s) Active day 30 minutes before morning meal hydrOXYzine Orally every 6 1 capsule 6h 30 day(s) A ctive Pamoate 50 MG hrs as needed LORazepam 1 MG Orally Once a 1 tablet at 24h Active day bedtime as needed AeroChamber MV Active Methylphenidate Orally Twice a 1 tablet on 12h Active HCl 20 MG day an empty stomach AzaSite 1 % as directed Active Advair HFA 230-21 Inhalation 2 puffs 12h Act willow MCG/ACT Twice a day traZODone HCl 100 Orally Once a 1 tablet at 24h 30 d ay(s) Active MG day bedtime PROCEDURES Procedure Date Ordered Result Body Site PMR NRV CNDJ TST 3-4 STUDIES Oct 27, 2012 PMR MUSC TEST DONE W/N TEST COMP Oct 27, 2012 RESULTS Name Result Date Reference Range MR SPINE CERVICAL WO CONTRAST 2012-04-23 XR KNEE 4 VIEW RIGHT 2012-04-02 TSH 2011-12-16 THYROID STIMULATING HORMONE 0.52 0.34 -5.60 SEDIMENTATION RATE 2011-12-16 ERYTHROCYTE SEDIMENTATION RATE 16 < =30 GLYCOHEMOGLOBIN A1C 2011-12-16 HEMOGLOBIN A1c 5.4 4.4-6.[address] GLUCOSE 108 70-105 VITAMIN B12 & FOLATE 2011-12-16 GLUCOSE 2011-12-16 PROTEIN ELECTROPHORESIS, SERUM ([id number]) Protein, Total, Serum 6.2 6.0-8.5 Albumin 3.9 3.2-5.6 Jxsxj-2-Qtvmnnsk 0.2 0.1-0.4 Jbjtf-8-Jqwlgjlg 0.6 0.4-1.2 Beta Globulin 0.8 0.6-1.3 Gamma Globulin 0.6 0.5-1.6 M-Kb Not Observed Not Observed Globulin, Total 2.3 2.0-4.5 A/G Ratio 1.7 0.7-2.0 Please note: Comment REASON FOR VISIT [facility]- F/U, Question about ablation , [facility] - 6 WEEK F/UP BILAT LUMBAR MBB, [facility] - 6 WEEK F/UP BILAT LUMBAR MBB., told patient to call, [facility]- bilateral medial branch block targeting L3, 4 and 5.,no auth req'd // Procedure/ NEEDS ORDER, [facility]- Back pain, R UE pain with paresthesias, appt, appt with neurology [facility] Ortiz, wants appt, MRI cervical spine, x ray knee, ROSITA fu right thigh numbness, pain , ROSITA f/u Meralgia Paresthetica and ? PN, ROSITA 1 mo fu, ROSITA 1 mo fu, fyi, SPEP , b12,folate, tsh, sed rate, glucose, hgbA1c, ROSITA Numbness leg and foot Insurance Providers [facility] Health Member Patient Patient Patient Patient Patient Subscriber Subscriber Subscriber Group Insurance Plan Plan Plan Plan ID Relationship Address Phone Name Date of ID Name Date of No Type Insurance Insurance Insurance Coverage to Subscriber Address Phone Name Dates MEDICARE [phone] MEDICARE self Magdalene [id number] PART A [id number] [place] [address] [place] [phone] NGS self Amgdalene [id number] MEDICARE [id number] [place] [address] MED[address]ARE [phone] MEDICARE self Magdalene [id number] Jose Guadalupe [facility] [address] MEDICARE [phone] MEDICARE self Magdalene [id number] Jose Guadalupe [facility] [address] [place] [phone] [place] self Magdalene [id number] MEDICAID [place] [address] MEDICAID Jose Guadalupe [place] [id number] WELLCARE [phone] WELLCARE self Magdalene [id number] Jose Guadalupe [facility] [address] UNITED [phone] UNITED self Magdalene [id number] HEALTHCARE [address] [place] [address] HEALTHCARE Jose Guadalupe [facility] [place] [phone]
--- NOTE | 2022-03-21 13:23 | DI.DEXA_ITS ---
Exam(s) XR DEXA BONE DENSITY W/WO LISSETT EXAM: XR DEXA BONE DENSITY W/WO LISSETT CLINICAL HISTORY: POSTMENOPAUSAL STATE, Z78.0; SCREENING FOR OSTEOPOROSIS, Z13.820 TECHNIQUE: Routine DEXA evaluation of the lumbar spine, hip, or forearm. COMPARISON: No exams were available for comparison FINDINGS: Performed on a Hologic unit. Lateral image: No compression fracture evident. Lumbar Spine total T-score: 0.1 Hip total T-score:-0.1 Independent reading at the level of the femoral neck yields T-score of -0.7 -1.6 Forearm total T-score: IMPRESSION: Bone mineral density measures in the normal-bordering on osteopenia range. Fracture risk is low-moder ate Note: Any spine fracture indicates 5x risk for subsequent spine fracture and 2x risk for subsequent h ip fracture. World Health Organization criteria for BMD interpretation classify patients: Normal...... T- Score at or above -1.0 Osteopenic... T- Score between -1.0 and -2.5 Osteoporosis... T-Score at or below -2.5
== END 2022-03-21 00:49 ==
LOC: DI 00:29
PROVIDERS: PCP Nurse Practitioner Family; Visit Provider Nurse Practitioner Family
DX: Z78.0 Asymptomatic menopausal state (principal); Z13.820 Encounter for screening for osteoporosis; M85.88 Other specified disorders of bone density and structure, other site
CPT/HCPCS: 77080

== ENCOUNTER 2022-05-12 13:03 | Outpatient (CLI) | payer OTHER, MEDICAID, SELFPAY ==
[2022-05-12 08:02] LABS: HCT 42.5 % (36.0-46.0); HGB 13.8 g/dL (11.2-15.7); MCH 31.1 pg (27.0-33.0); MCHC 32.5 % (32.0-36.0); MCV 96 fL (80-95); MPV 8.5 fL (8.0-11.0); Platelet Count 306 10^3/uL (130-400); RBC 4.44 10^6/uL (3.93-5.22); RDW 13.3 % (11.7-14.6); RDW-SD 46.9 fL; WBC 8.35 10^3/uL (4.4-10.8)
--- OUTSIDE RECORDS SUMMARY | 2022-05-12 13:05 | XMS_ITS ---
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 Active 53831399 Problem Paresthesia 782.0 Active 71275918 Problem Meralgia paresthetica 355.1 Active 59779629 Problem Low back pain 724.2 Active 550401280 Problem Carpal tunnel syndrome 354.0 Active 94088595 Problem HEPATITIS C CARRIER V02.62 Active 2358 22942 Problem Lumbar spondylosis M47.816 Active 65309 0009 Problem 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 Active 5403045 5 Problem Cervical radiculitis 723.4 Active 110 49177 Problem Cervical spondylosis with myelopathy 721.1 Active 77920943 Problem Abnormal findings on radiological or other exams of body structure, NEC 793.99 Active 631548536 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 ALLERGIES Substance Reaction Event Type Date Status Codeine, Sonata Unknown Non Drug Allergy Oct, A ctive Morphine Sulfate Unknown Non Drug Allergy Oct, Active ENCOUNTERS Encounter Location Date Diagnosis [facility] [address] [facility] [address] [place], [place] [id number] Mar, 2021 [facility] [address] [place], [place] [id number] Jan, [facility] [address] [facility] [address] [place], [place] [id number] Nov, [facility] Otol[facility]ology [address] [facility] [address] [place], [place] [id number] 17 Oct, 2020 [facility] [address] [place], [place] [id number] 16 Oct, 2020 Lumbar spondylosis M47.816 [facility] [address] [facility] [address] [place], [place] [id number] Oct, [facility] [address] [facility] [address] [place], [place] [id number] Oct, Lumbar spondylosis M47.816 [facility] [address] [place], [place] [id number] 11 Oct, 2012 Carpal tunnel syndrome 354.0 [facility] [address] [id number] Oct, [facility] [address] [id number] Aug, [facility] [address] [id number] May, [facility] [address] [id number] Apr, [facility] [address] [id number] Mar, [facility] [address] [id number] Mar, Cervical spondylosis with myelopathy 721.1 ; Cervical radiculitis 723.4 ; Abnormal findings on radiological or other exams of body structure, NEC 793.99 ; Meralgia paresthetica 355.1 ; Paresthesia 782.0 ; HEPATITIS C CARRIER V02.62 ; 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 ; Peripheral neuropathy 356.9 ; Ataxia 438.84 ; Low back pain 724.2 and DJD KNEE 715.36 [facility] [address] [place] [id number] Feb, [facility] [address] [id number] Feb, Cervical spondylosis with myelopathy 721.1 ; Cervical radiculitis 723.4 ; Abnormal findings on radiological or other exams of body structure, NEC 793.99 ; Meralgia paresthetica 355.1 ; Paresthesia 782.0 ; HEPATITIS C CARRIER V02.62 ; 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 ; Peripheral neuropathy 356.9 ; Ataxia 438.84 and Low back pain 724.2 [facility] [address] [id number] Dec, [facility] [address] [id number] Dec, [facility] [address] [id number] Nov, [facility] [address] [id number] Nov, Meralgia paresthetica 355.1 ; Paresthesia 782.0 ; HEPATITIS C CARRIER V02.62 ; 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 ; Peripheral neuropathy 356.9 and Ataxia 438.84 IMMUNIZATIONS No Known Immunizations SOCIAL HISTORY Never [...] 2011-12-16 Blood pressure systolic 114 mm Hg Blood pressure diastolic 80 mm Hg 2020-10 MEDICATIONS Medication Instructions Dosage Frequency Start Date End Date Duration Status Mobic 7.5 MG Orally Once a day 1 tablet 24h 30 day(s) Active Ambien 10 MG Orally Once a day 1 tablet at bedtime as needed 24h Active Gabapentin 800 MG Orally Once a day 1 tablet 24h 30 day(s) Active Nystatin 631633 UNIT/ML Mouth/Throat Four times a day 4 ml 6h 30 day(s) Active Ventolin HFA 108 (90 Base) MCG/ACT Inhalation every 4 hrs 1 puff as needed 4h Active Venlafaxine HCl 100 MG Orally Once a day 1 tablet with food 24h 30 day(s) Active Minipress 1 MG Orally Once a day 1 capsule at bedtime 24h 30 day(s) Active Atorvastatin Calcium 20 MG Orally Once a day 1 tablet 24h 30 day(s) Active Omeprazole 20 MG Orally Once a day 1 capsule 30 minutes before morning meal 24h 30 day(s) Active hydrOXYzine Pamoate 50 MG Orally every 6 hrs 1 capsule as needed 6h 30 day(s) Active LORazepam 1 MG Orally Once a day 1 tablet at bedtime as needed 24h Active AeroChamber MV A ctive Methylphenidate HCl 20 MG Orally Twice a day 1 tablet on an empty stomach 12h Active AzaSite 1 % as directed Active Advair HFA 230-21 MCG/ACT Inhalation Twice a day 2 puffs 12h Active traZODone HCl 100 MG Orally Once a day 1 tablet at bedtime 24h 30 day(s) Active PROCEDURES Procedure Date Ordered Result Body Site PMR NRV CNDJ TST 3-4 STUDIES Oct 27, 2012 PMR MUSC TEST DONE W/N TEST COMP Oct 27, 2012 RESULTS Name Result Date Reference Range MR SPINE CERVICAL WO CONTRAST 2012-04-23 XR KNEE 4 VIEW RIGHT 2012-04-02 TSH 2011-12-16 THYROID STIMULATING HORMONE 0.52 0.34-5.60 SEDIMENTATION RATE 2011-12-16 ERYTHROCYTE SEDIMENTATION RATE 16 <=30 GLYCOHEMOGLOBIN A1C 2011-12-16 HEMOGLOBIN A1c 5.4 4.4-6.[address] GLUCOSE 108 70-105 VITAMIN B12 & FOLATE 2011-12-16 GLUCOSE 2011-12-16 PROTEIN ELECTROPHORESIS, SERUM ([id number]) 2 Protein, Total, Serum 6.2 6.0-8. 5 Albumin 3.9 3.2-5.6 Utvir-3-Tuyidxjh 0.2 0.1-0.4 Jzhcq-7-Jknekeik 0.6 0.4-1.2 Beta Globulin 0.8 0.6-1.3 Gamma Globulin 0.6 0.5-1.6 M-Kb Not Observed Not Observed Globulin, Total 2.3 2.0-4.5 A/G Ratio 1.7 0.7-2.0 Please note: Comment REASON FOR VISIT [facility]- F/U, Question about ablation , [facility] - 6 WEEK F/UP BILAT LUMBAR MBB, [facility] - 6 WEEK F/UP BILAT LUMBAR MBB., told patient to call, [facility]- bilateral medial branch block targeting L3, 4 and 5., no auth req'd // Procedure/ NEEDS ORDER, [facility]- Back pain, R UE pain with paresthesias, appt, appt with neurology [facility] Dr Ortiz, loris appt, MRI cervical spine, x ray knee, ROSITA fu right thigh numbness, pain , ROSITA f/u Meralgia Paresthetica and ? PN, ROSITA 1 mo fu, ROSITA 1 mo fu, fyi, SPEP , b12,folate, tsh, sed rate, glucose, hgbA1c, ROSITA Numbness leg and foot Insurance Providers Health Insurance Type Health Plan Insurance Address Health Plan Insurance Phone Health Plan Insurance Name Health Plan Coverage Dates Member ID Patient Relationship to Subscriber Patient Address Patient Phone Patient Name Patient Date of Subscriber ID Subscriber Name Subscriber Date of Group No MEDICARE [address] [facility] [address] MEDICARE self Magdalene Jose Guadalupe [id number] MEDICARE PART A [address] [facility] [address] MEDICARE PART A self Magdalene Jose Guadalupe [id number] [place] MED[place] [address] [facility] [id number] [place] self Magdalene Jose Guadalupe [id number] MEDICARE [address] [facility] [address] MEDICARE self Magdalene Jose Guadalupe [id number] [place] MEDICARE [address] [place] [address] NGS MEDICARE self Magdalene Jose Guadalupe [id number] [facility] MCR ADV [address] [facility] [id number] [facility] MCR ADV self Magdalene Jose Guadalupe [id number] [address]LLCARE [address] [address] [facility] [phone] WELLCARE self Magdalene Jose Guadalupe [id number]
== END 2022-05-12 13:04 | disposition home or self-care (01) ==
LOC: LBO 13:03
PROVIDERS: PCP Nurse Practitioner Family; Visit Provider Nurse Practitioner Family
DX: R11.2 Nausea with vomiting, unspecified (principal)
CPT/HCPCS: 36415; 85027

== ENCOUNTER → 2022-05-13 14:48 | Outpatient (BNVA) | payer OTHER, MEDICAID, SELFPAY | PROVIDERS: PCP Nurse Practitioner Family; Referring Provider Nurse Practitioner Family; Visit Provider Nurse Practitioner Adult Health | DX: G43.009 Migraine without aura, not intractable, without status migrainosus (principal); G43.109 Migraine with aura, not intractable, without status migrainosus; F39 Unspecified mood [affective] disorder; Z72.0 Tobacco use; Z87.820 Personal history of traumatic brain injury | CPT/HCPCS: 99213; J1885; J2550; 96372 ==

== ENCOUNTER 2022-05-19 02:08 | Outpatient (CLI) | payer OTHER, MEDICAID, SELFPAY ==
--- NOTE | 2022-05-19 | DI.MAMMO_ITS ---
Exam(s) MAMMO SCREENING EXAM: MAMMO SCREENING CLINICAL HISTORY: SCREENING, Z12.31. TECHNIQUE: Bilateral full field digital CC and MLO mammographic images were obtained with 3D tomosyn thesis and utilizing computer aided detection (CAD). COMPARISON: Prior mammograms were reviewed. FINDINGS: There has been no significant change in the appearance and distribution of the fibroglandular tissue. There are no new spiculated masses nor malignant appearing microcalcification groups. There is no significant architectural distortion nor skin thickening-retraction. IMPRESSION: No radiographic evidence of malignancy. BI-RADS Category 1 - Negative Breast Density - Category B - Scattered areas of fibroglandular density Breast density Category C or D implies that the patient has dense breast tissue. Dense breast tissue can make it harder to find cancer on a mammogram. Dense breast tissue is also associated with an incr eased risk of breast cancer. This information about the result of the mammogram report was provided to the patient to raise their awareness. Use this report when you speak with the patient about their risks for breast cancer, which includes their family history. At that time, you may recommend additional screening tests (Ultrasoun d or MRI) as these tests may add significant information. A negative radiographic report should not delay biopsy if a dominant or clinically suspicious mass is present. Up to ten percent of cancers are not identified on mammography. A negative report may reinforce clinical impression. Adenosis and dense breasts may obscure an underlying neoplasm. False positive reports average 6 to 10%. Patient will receive a letter notifying them of these results.
== END 2022-05-19 02:28 ==
PROVIDERS: PCP Nurse Practitioner Family; Visit Provider Nurse Practitioner Family
DX: Z12.31 Encounter for screening mammogram for malignant neoplasm of breast (principal)
CPT/HCPCS: 77063; 77067

== ENCOUNTER 2022-05-20 17:31 | Emergency (ER) | payer OTHER, MEDICAID, SELFPAY ==
[2022-05-20 17:47] VITALS: BP 114/65; PULSE 105; RESP 18; TEMP 37.3; O2SAT 97
--- NOTE | 2022-05-20 18:00 | DI.RAD_ITS ---
Exam(s) XR TIB/FIB LT XR FOOT LT COMPLETE XR ANKLE LT COMPLETE EXAM: XR ANKLE LT COMPLETE CLINICAL HISTORY: fall lateral tenderness and swelling TECHNIQUE: 2D digital imaging was performed. Three views. COMPARISON: CR XR ANKLE RT COMPLETE from 02/25/2022 CR,XR XR FOOT LT COMPLETE from 05/20/2022 CR,XR XR TIB/FIB LT from 05/20/2022 FINDINGS: Soft tissue swelling noted greatest around the lateral malleolus. Nondisplaced oblique fracture thro ugh the lateral malleolus. No additional fractures seen. Heel spurs noted. Ankle mortise appears i ntact. No additional fractures are seen more proximally in the tibia and fibula. No fractures are s een in the foot. Accessory navicular. Degenerative changes 1st MTP joint. IMPRESSION: Nondisplaced fracture lateral malleolus. DATA REPOSITORY: RADIATION DOSE DELIVERED:
[2022-05-20] MEDS: Acetaminophen 500 MG TAB 1000 MG PO (18:21)
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
--- NOTE | 2022-05-20 19:25 | DI.VRAD_ITS ---
PROCEDURE INFORMATION: Exam: XR Left Foot Exam date and time: 05/20/2022 6:44 PM Age: 61 years old Clinical indication: Other: Fall lateral tenderness base of 5th TECHNIQUE: Imaging protocol: Radiologic exam of the left foot. Views: 3 or more views. Total images: 3 COMPARISON: MR FOOT^FOREFOOT 09/08/2018 9:16 AM FINDINGS: Bones/joints: Bone mineralization is normal. No acute fracture or dislocation. Small calcaneal spurs at the insertion of the plantar aponeurosis and Achilles tendon. Mild joint space narrowing, subchondral sclerosis and subchondral cyst formation 1st metatarsophalangeal joint suggesting mild osteoarthritis. Joint spaces appear normal. Soft tissues: Soft tissues appear normal. No radiopaque foreign bodies. IMPRESSION: 1. No acute fracture or dislocation. 2. Small calcaneal spurs at the insertion of the plantar aponeurosis and Achilles tendon. 3. Mild joint space narrowing, subchondral sclerosis and subchondral cyst formation 1st metatarsophalangeal joint suggesting mild osteoarthritis. Dictated and Authenticated by: Magalis Starr MD. Ordering:SATYA Gaona MD
--- NOTE | 2022-05-20 19:27 | DI.VRAD_ITS ---
PROCEDURE INFORMATION: Exam: XR Left Tibia and Fibula Exam date and time: 05/20/2022 6:36 PM Age: 61 years old Clinical indication: Other: Fall lateral tenderness TECHNIQUE: Imaging protocol: Radiologic exam of the left tibia and fibula. Views: 2 views. Total images: 2 COMPARISON: MR FOOT^FOREFOOT 09/08/2018 9:16 AM FINDINGS: Bones/joints: Of note, the distal tibia and fibula and are excluded from the field of view on the lateral view. Subtle linear lucency in the lateral aspect of the distal fibular metadiaphysis which could represent a nondisplaced fracture. No evidence of dislocation. Soft tissues: Soft tissue swelling around the ankle particularly laterally. Other findings: AP and lateral views are presented. IMPRESSION: 1. Subtle linear lucency in the lateral aspect of the distal fibular metadiaphysis which could represent a nondisplaced fracture. 2. Soft tissue swelling around the ankle particularly laterally. Dictated and Authenticated by: Magalis Starr MD. Ordering:SATYA Gaona MD
--- NOTE | 2022-05-20 19:28 | DI.VRAD_ITS ---
PROCEDURE INFORMATION: Exam: XR Left Ankle Exam date and time: 05/20/2022 6:37 PM Age: 61 years old Clinical indication: Other: Fall lateral tenderness and swelling TECHNIQUE: Imaging protocol: Radiologic exam of the left ankle. Views: 3 or more views. Total images: 3 COMPARISON: CR XR TIB/FIB LT 05/20/2022 6:36 PM FINDINGS: Bones/joints: Subtle linear lucency in the lateral aspect of the distal fibular metadiaphysis consistent with a nondisplaced fracture. No evidence of dislocation. Small calcaneal spurs at the insertion of the plantar aponeurosis and Achilles tendon. Soft tissues: Soft tissue swelling around the ankle, most severe laterally. IMPRESSION: 1. Subtle linear lucency in the lateral aspect of the distal fibular metadiaphysis consistent with a nondisplaced fracture. 2. Soft tissue swelling around the ankle, most severe laterally. 3. Small calcaneal spurs at the insertion of the plantar aponeurosis and Achilles tendon. Dictated and Authenticated by: Magalis Starr MD. Ordering:SATYA Gaona MD
== END 2022-05-20 20:20 | disposition home or self-care (01) ==
PROVIDERS: Emergency Provider Nurse Practitioner Family; PCP Nurse Practitioner Family
DX: S82.832A Other fracture of upper and lower end of left fibula, initial encounter for closed fracture (principal); I10 Essential (primary) hypertension; J45.909 Unspecified asthma, uncomplicated; W19.XXXA Unspecified fall, initial encounter; Z79.51 Long term (current) use of inhaled steroids
CPT/HCPCS: 29515; 99283; 73590; 73610; 73630; 99284

== ENCOUNTER 2022-06-05 08:21 | Outpatient (CLI) | payer OTHER, MEDICAID, SELFPAY ==
--- NOTE | 2022-06-05 08:00 | DI.RAD_ITS ---
Exam(s) XR ANKLE LT COMPLETE EXAM: XR ANKLE LT COMPLETE CLINICAL HISTORY: f/u fx TECHNIQUE: 2D digital imaging was performed. Three views. COMPARISON: CR,XR XR ANKLE LT COMPLETE from 05/20/2022 FINDINGS: There has been no change in the alignment of the distal fibular fracture. There is surrounding soft tissue swelling. There is mild widening of the medial ankle mortise. Heel spurs are again seen. DATA REPOSITORY: RADIATION DOSE DELIVERED:
== END 2022-06-05 08:22 | disposition home or self-care (01) ==
LOC: DIORS 08:22
PROVIDERS: PCP Nurse Practitioner Family; Referring Provider Nurse Practitioner Family; Visit Provider Physician Assistant
DX: M79.89 Other specified soft tissue disorders; M77.32 Calcaneal spur, left foot; S82.65XD Nondisplaced fracture of lateral malleolus of left fibula, subsequent encounter for closed fracture with routine healing; W00.9XXD Unspecified fall due to ice and snow, subsequent encounter
CPT/HCPCS: 99213; 73610

== ENCOUNTER 2022-06-18 11:18 | Outpatient (CLI) | payer OTHER, MEDICAID, SELFPAY ==
--- NOTE | 2022-06-18 11:15 | DI.RAD_ITS ---
Exam(s) XR ANKLE LT COMPLETE EXAM: XR ANKLE LT COMPLETE CLINICAL HISTORY: f/u fx TECHNIQUE: 2D digital imaging was performed of the left ankle. Four images were obtained. AP, late ral and oblique views were obtained. COMPARISON: CR XR ANKLE LT COMPLETE from 06/05/2022 FINDINGS: BONES: There has been no change in alignment of the distal fibular fracture. Callus formation has de veloped about the fracture site consistent with some interval healing. No new fractures identified. No bony destructive lesion is seen. There is a small plantar calcaneal spur. There is an enthesophy te at the posterior calcaneus. JOINTS:The ankle mortise is normally aligned. SOFT TISSUE: There is soft tissue swelling of the ankle laterally. IMPRESSION: Healing distal fibular fracture. DATA REPOSITORY: RADIATION DOSE DELIVERED:
== END 2022-06-18 11:19 | disposition home or self-care (01) ==
LOC: DIORS 11:18
PROVIDERS: PCP Nurse Practitioner Family; Referring Provider Nurse Practitioner Family; Visit Provider Student in an Organized Health Care Education/Training Program
DX: S82.832D Other fracture of upper and lower end of left fibula, subsequent encounter for closed fracture with routine healing; X58.XXXD Exposure to other specified factors, subsequent encounter
CPT/HCPCS: 99213; 73610

== ENCOUNTER → 2022-07-16 10:30 | Outpatient (BNVA) | payer OTHER, MEDICAID, SELFPAY | PROVIDERS: PCP Nurse Practitioner Family; Visit Provider Student in an Organized Health Care Education/Training Program ==

== ENCOUNTER 2022-07-28 17:51 | Outpatient (REF) | payer OTHER, MEDICAID, SELFPAY ==
[2022-07-28 19:40] LABS: TSH (W/Ref FT4) 3.77 uIU/mL (0.36-3.74)
[2022-07-28 19:57] LABS: FREE T4 0.76 ng/dL (0.76-1.46)
== END 2022-07-28 17:52 | disposition home or self-care (01) ==
LOC: NCHCN 17:51
PROVIDERS: PCP Nurse Practitioner Family; Visit Provider Nurse Practitioner Family
DX: E03.9 Hypothyroidism, unspecified (principal)
CPT/HCPCS: 84439; 84443

== ENCOUNTER 2022-08-06 13:29 | Outpatient (CLI) | payer OTHER, MEDICAID, SELFPAY ==
--- NOTE | 2022-08-06 13:15 | DI.RAD_ITS ---
Exam(s) XR ANKLE LT COMPLETE EXAM: XR ANKLE LT COMPLETE CLINICAL HISTORY: left ankle f/u TECHNIQUE: 2D digital imaging was performed of the left ankle. Three images were obtained. AP, lat eral and oblique views were obtained. COMPARISON: CR XR ANKLE LT COMPLETE from 06/18/2022 FINDINGS: BONES: There has been no change in alignment of the distal fibular fracture. No new fractures identi fied. No bony destructive lesion is seen. There is a small plantar calcaneal spur. There is an enth esophyte at the posterior calcaneus. JOINTS:The ankle mortise is normally aligned. SOFT TISSUE: Normal. IMPRESSION: Stable distal fibular fracture. DATA REPOSITORY: RADIATION DOSE DELIVERED:
== END 2022-08-06 13:30 | disposition home or self-care (01) ==
LOC: DIORS 13:30
PROVIDERS: PCP Nurse Practitioner Family; Referring Provider Nurse Practitioner Family; Visit Provider Student in an Organized Health Care Education/Training Program
DX: S82.832D Other fracture of upper and lower end of left fibula, subsequent encounter for closed fracture with routine healing; X58.XXXD Exposure to other specified factors, subsequent encounter
CPT/HCPCS: 99213; 73610

== ENCOUNTER → 2022-08-12 08:03 | Outpatient (BNVA) | payer OTHER, MEDICAID, SELFPAY | PROVIDERS: PCP Nurse Practitioner Family; Visit Provider Nurse Practitioner Adult Health | DX: G43.009 Migraine without aura, not intractable, without status migrainosus (principal); G43.109 Migraine with aura, not intractable, without status migrainosus; F39 Unspecified mood [affective] disorder; Z72.0 Tobacco use; Z87.820 Personal history of traumatic brain injury | CPT/HCPCS: 99213 ==

== ENCOUNTER → 2022-10-02 07:43 | Outpatient (BNVA) | payer OTHER, MEDICAID, SELFPAY | PROVIDERS: PCP Nurse Practitioner Family; Referring Provider Nurse Practitioner Family; Visit Provider Physical Therapy Assistant | DX: Z12.11 Encounter for screening for malignant neoplasm of colon (principal); Z86.010 Personal history of colon polyps ==

== ENCOUNTER 2022-10-27 13:18 | Outpatient (REF) | payer OTHER, MEDICAID, SELFPAY ==
[2022-10-27 16:00] LABS: ALT 32 U/L (14-59); AST 24 U/L (15-37); HDL Cholesterol 58 mg/dL (40-60); LDL CHOLESTEROL 264 mg/dL (<100)
[2022-10-27 16:44] LABS: Creatine Kinase 48 U/L (26-192)
== END 2022-10-27 13:19 | disposition home or self-care (01) ==
LOC: NCHCN 13:18
PROVIDERS: PCP Nurse Practitioner Family; Visit Provider Nurse Practitioner Family
DX: E78.5 Hyperlipidemia, unspecified (principal)
CPT/HCPCS: 82550; 83721; 83718; 84450; 84460

== ENCOUNTER → 2022-11-12 12:43 | Outpatient (BNVA) | payer OTHER, MEDICAID, SELFPAY | PROVIDERS: PCP Nurse Practitioner Family; Referring Provider Nurse Practitioner Family; Visit Provider Nurse Practitioner Adult Health | DX: R51.9 Headache, unspecified (principal); F39 Unspecified mood [affective] disorder; F17.210 Nicotine dependence, cigarettes, uncomplicated; Z87.820 Personal history of traumatic brain injury | CPT/HCPCS: 99213; J1885; J2550; 96372 ==

== ENCOUNTER → 2022-12-19 00:06 | Outpatient (CLI) | payer OTHER, MEDICAID, SELFPAY ==
--- OUTSIDE RECORDS SUMMARY | 2022-12-19 00:07 | XMS_ITS | Continuity of Care Document ---
Author Name Unknown Organization [facility] Address [address] [place] [address] Care Team Providers Care Mobile Heavy Equipment Mechanic Name Role Phone RADHA LOZADA Primary Care Physician Encounter [facility] NBR [id number] Date(s): 12/04/22 - 12/04/22 [facility] [address] [place] [address]- us Discharge Disposition: Home Patient Care team information Care Team Personnel Name: RADHA LOZADA Position: No Access Member Role: Primary Care Physician Address: Address: [address], [place] [address]
--- NOTE | 2022-12-19 07:30 | DI.US_ITS ---
APPROVED REPORT EXAM: Comprehensive 2D, Doppler, and color-flow Echocardiogram Patient Location: Out-Patient Consumer Educator: Zulma Urias RDCS (AE) Indications: Aortic insufficiency Other Information Study Quality: Adequate Conclusion Normal left ventricular wall thickness and chamber size. Ejection fraction is 55 to 60%. Wall motio n is normal Normal right ventricular size and systolic function Both atria are normal in size Aortic valve is trileaflet and mildly sclerotic with mild to moderate regurgitation. There is no aor tic stenosis Mild mitral annular calcification, trace mitral regurgitation Borderline dilated ascending aorta measuring 3.34 cm Wall motion Left Ventricle The left ventricle is normal size. The left ventricular systolic function is normal. The left ventric ular ejection fraction is within the normal range. There is normal left ventricular wall thickness. T here is normal LV segmental wall motion. There is no ventricular septal defect visualized. LVEF is 60 %. Right Ventricle The right ventricle is normal size. The right ventricular systolic function is normal. Atria The left atrium size is normal. The right atrium size is normal. The interatrial septum is intact wit h no evidence for an atrial septal defect. Aortic Valve The aortic valve is mildly sclerotic Aortic valve is trileaflet. There is no aortic valvular stenosis . Mild to moderate aortic regurgitation. Mitral Valve Mild mitral annular calcification. No evidence of mitral valve stenosis. Trace mitral regurgitation. Tricuspid Valve The tricuspid valve is normal in structure. There is no tricuspid valve stenosis. Trace tricuspid reg urgitation. Unable to assess PA pressure. Pulmonic Valve The pulmonary valve is normal in structure. There is no pulmonic valvular stenosis. Trace pulmonic re gurgitation. Great Vessels The aortic root is normal in size. The ascending aorta is mildly dilated. Aortic arch is normal in ca liber. IVC is normal in size and collapses >50% with inspiration. Pericardium There is no pericardial effusion. 2D Dimensions IVSD d PLAX 0.86 cm F: 0.6-1.0 Ao Root d 2.96 cm F: 2.7 - 3.3 LVPW d PLAX 0.91 cm F: 0.6 - 1.0 Ao Asc Diam d 3.34 cm F: 2.3 - 3.1 LVID d PLAX 4.39 cm F: 3.8 - 5.2 LVDs 3.07 cm F: 2.2 - 3.5 LV EF Teichholz 57.5 % FS 30.01 % LV EDV (Teich) 87.2 mL LV ESV (Teich) 37.1 mL M-Mode TAPSE 1.97 cm (M/F) >1.7 Auto EF LV EDV A4C 76.1 mL LV EDV A2C 78.0 mL LV EDV BP 77.0 mL LV ESV A4C 34.4 mL LV ESV A2C 34.9 mL LV ESV BP 34.1 mL LVEF(%) A4C 54.9 % LVEF(%) A2C 55.2 % LVEF(%) BP 55.8 % LV SV A4C 41.7 ml LV SV A2C 43.0 ml LV SV BP 42.9 ml LV CO A4C 2.9 L/min LV CO A2C 3.1 L/min LV CO BP 3.0 L/min HR A4C 70.04 BPM HR A2C 72.29 BPM LV EDV Index (BP) LV Strain Long Pk Overal Avg (s) 17.44 RV Strain Global Peak Long. Strain A4C 14.69 Global Peak Long. Strain A4C FW 16.11 LA Volume LA Length A4C 4.5 cm LA Length A2C 4.8 cm LA Area A4C s 11.60 cm2 LA Area A2C s 15.93 cm2 LA Vol A4C A-L 25.30 mL LA Vol A2C A-L 45.11 mL LA Vol Biplane A-L 34.8 mL LA Vol/BSA A4C A-L LA Vol/BSA A2C A-L LA Vol/BSA BP A-L 19.5 mL/m2 LA Vol A4C MOD 22.9 mL LA Vol A2C MOD 41.8 mL LA Vol BP MOD 31.7 mL RA Volume RA Area A4C 8.6 cm2 RA ESV A4C (A-L) 14.9mL RA Vol/BSA A4C A-L RA Length A4C 4.2 cm RA ESV A4C (MOD) 14.6mL LV Diastology MV E' medial 0.079 (>0.07 m/s) MV E Vmax 0.69 (0.4-1.3 m/s) MV E/E' MED 8.76 (<14) MV A Vmax 0.85 (0.4-1.3 m/s) MV E' lateral 0.094 (>0.1 m/s) E/A Ratio 0.8 MV E/E' LAT 7.34 (<14) MV E' Average 0.086 m/s MV E/E'(average) 7.99 Aortic Valve AoV Vmax 1.45 m/s LVOT Vmax 1.20 m/s AoV Peak Grad 45.7 mmHg LVOT Peak Grad 5.8 mmHg AoV Area (Vmax) 2.56 cm2 LVOT VTI 0.294 m AoV VTI 0.333 m LVOT Mean Grad 3.1 mmHg AoV Mean Audi. 1.01 m/s LVOT SV 90.82 mL AoV Mean Grad 4.6 mmHg LVOT Diam s 1.95 cm AoV Area (VTI) 2.72 cm2 AV Regurg Peak Gr. 83.00 mmHg Velocity Ratio 0.83 AR Decel Fergus 1.6m/sec2 AR DT 2920 msec AR PHT 847 msec AR Vmax 4.56 m/s Mitral Valve MV DT 204 (160-240 msec) MV Vmax TIPS 0.89 m/s MV Mean Grad 1.3 (<2mmHg) MV VTI 0.304 m Pulmonary Valve PV Vmax 0.86 (0.5-1.5 m/s) RVOT Vmax 0.70 m/s PV Peak Grad 3.0 mmHg RVOT Peak Gr. 1.9 mmHg PV Mean Audi 0.60 m/s RVOT VTI 0.148 m PV Mean Grad 1.6 mmHg RVOT Mean Gr. 1.1 mmHg Tricuspid Valve RA Pressure 3.00 mmHg TV S' 0.11 m/s
== END ==
PROVIDERS: PCP Nurse Practitioner Family; Visit Provider Nurse Practitioner Family
DX: I35.2 Nonrheumatic aortic (valve) stenosis with insufficiency (principal)
CPT/HCPCS: 93306

== ENCOUNTER 2023-01-20 09:15 | Day surgery (SDC) | payer OTHER, MEDICAID, SELFPAY ==
--- NOTE | 2023-01-20 09:41 | COLE_ITS ---
Date of service: 01/20/23 Time of Service: 11:30 Colonoscopy Report Procedure Description: Procedure: colonoscopy Pre-op Diagnosis: Surveillance colonoscopy Post-op Diagnosis: Poor Prep, Incomplete Colonoscopy Surgeon: Karen Lyons Assist: None Anesthesia: Anesthesia monitoring Indication: Asymptomatic surveillance with no family history and no personal history of significance. Findings: The prep was poor. No tumors seen. Cecum definitively identified. Formed stool throughout. Small, medium and probably large polyps would have been missed. Tumors would not have been missed. Complications: None EBL: Minimal Surveillance recommendations: 1 year with extended prep Specimens removed: No Grafts or implants: None Prep: Formed stool throughout the colon. Procedure in detail: Written consent was obtained from the patient who was in agreement with the risks, the benefits and the indications for the procedure. The patient was taken to the endoscopy suite and laid in the left lateral decubitus position with knees bent. We performed a timeout. When we were all in agreement anesthesia was administered and I began the procedure. Visual and digital perianal/rectal exam was performed. This was within normal limits. The colonoscope was introduced and passed without difficulty all the way to the cecum. The appendiceal orifice and ileocecal valve were identified. The scope was then slowly pulled back, carefully inspecting all of the colonic mucos a and recesses. Findings noted above. The colonoscope was then removed, the patient tolerated the procedure well and was then taken to the PACU in hemodynamically stable condition.
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
[2023-01-20 09:49] VITALS: BP 151/106; PULSE 79; RESP 16; TEMP 36.8; O2SAT 98
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
--- NOTE | 2023-01-20 11:25 | NUR.NOTE ---
01/20/23 Patient arrived to Preop area at 09:20am. When asked, patient informs this RN that she has [facility] transporting her home, and that her daughter Leann, who lives with her, will be helping her for at least 24 hours after the procedure. Patient informs staff she does not have a daughter or a responsible adult present with her at [facility] today, the day of her procedure. Patient reports she was not aware she must have adult with her at [facility] for post care instruction and assistance as needed. This RN informs [facility] clearing hand that patient does not currently have a responsible adult present at [facility] for pre and post procedure instructions and care. clearing hand notifes BOX CLOSING MACHINE OPERATOR team members and supervision of patient lack of responsible adult present at [facility] for procedure today. This RN and BOX CLOSING MACHINE OPERATOR notify Dr. Lyons regarding cause of delay in care and procedure, due to the patient's lack of responsible adult present. Yovanny Wooten reports that patient was notified of policy on having adult with her at [facility] day of the procedure. Angel Middleton RN Nursing Note:
[2023-01-20 11:30] VITALS: BMI 29.6
[2023-01-20 11:49] VITALS: BP 145/86; PULSE 70; RESP 16; TEMP 36.2; O2SAT 96
--- NOTE | 2023-01-20 12:06 | ANES.POST_ITS ---
Postoperative Evaluation Date, Time and Location Date Performed: 01/20/23 Time Performed: 12:06 Patient Location: Day Surgery Unit Vital Signs Most Recent Imported Vital Signs: Most Recent Vital Signs Temp Pulse Resp BP Pulse Ox 36.2 C L 70 16 145/86 H 96 01/20/23 11:49 01/20/23 11:49 01/20/23 11:49 01/20/23 11:49 01/20/23 11:49 Pain Score Most Recent Pain Score: Most Recent Pain Score Pain Level 3 01/20/23 11:49 Assessment Mental Status: Awake (Alert & Oriented to Patient Baseline) Airway and Respiratory Function: Patent airway with normal (patient baseline) respiratory exam Cardiovascular Function: Hemodynamically Stable Hydration Status: Adequately Hydrated Nausea & Vomiting: No Nausea or Vomiting Pain: Pain is tolerable per patient Peripheral Nerve Block: Patient did not receive a nerve block Teaching Patient Teaching: Other Postoperative Comments:: Discussed patient PIV infiltration with propofol: specifically elevation above level of heart and warm compresses as recommended by pharmacy. All questions answered. Patient to see PCP tomorrow for a scheduled appointment and our PACU RNs will call to follow up. I did advise if worsening condition or if significant pain or concern that she should go to the ED. Patient and sign ificant other demonstrated understanding. Patient will be sent home with discharge instructions related to infiltration which have already been added to her postop D/C forms.
[2023-01-20 12:11] VITALS: BP 165/99; PULSE 74; RESP 18; O2SAT 98
--- NOTE | 2023-01-20 12:33 | W.PM.DSUDISC ---
Date of service: 01/20/23 Time of Service: 12:34 Discharge Plan Disposition Patient Disposition: Home Condition: Good Discharge Details Attending Provider: Finesse Lyons Primary Care Provider: Venessa Schneider Home Meds and New Rx's Prescriptions: No Action acetaminophen 325 mg capsule 325 mg PO ONCE PRN ibuprofen 200 mg tablet 200 mg PO Q6H PRN albuterol sulfate [ProAir HFA] 90 mcg/actuation HFA aerosol inhaler 1 - 2 puff Inhalation Q4-6H PRN Qty: 6.7 0RF Rx Instructions: Dispense whichever brand albuterol inhaler is covered by insurance gabapentin 600 mg tablet 800 mg PO TID Rx Instructions: Renee BARRON 1 in am, 1 at noon, 2 at HS albuterol sulfate 2.5 mg /3 mL (0.083 %) solution for nebulization 2.5 mg inhalation .Q4-6H PRN fluticasone propion-salmeterol [Advair HFA] 230-21 mcg/actuation HFA aerosol inhaler 2 puff inhalation BID trazodone 100 mg tablet 200 mg PO HS Rx Instructions: BEATRICE Go pantoprazole [Protonix] 20 mg tablet,delayed release (DR/EC) 20 mg PO DAILY PRN prazosin 2 mg capsule 4 mg PO QHS bupropion HCl 150 mg tablet sustained-release 12 hr 150 mg PO DAILY hydroxyzine HCl 50 mg tablet 200 mg PO QHS Qulipta 60 mg tablet 60 mg PO DAILY Qty: 90 3RF polyethylene glycol 3350 17 gram/dose powder 238 g PO ONCE Qty: 238 0RF Rx Instructions: take per colonoscopy instructions bisacodyl [Dulcolax (bisacodyl)] 5 mg tablet,delayed release (DR/EC) 5 mg PO ONCE Qty: 8 0RF Rx Instructions: take per colonoscopy instructions quetiapine 25 mg tablet Discharge Instructions Instructions: IV Infiltration (DC) Additional Instructions: FINDINGS: There were no tumors or colon cancer found. You can rest assured of that. However, the prep was not adequate enough to be sure there were no small polyps from a prevention standpoint. As such, you should repeat another colonoscopy in 1 year and you should do an extended, multi?day prep next time. Stand Alone Forms: Anesthesia Discharge Inst., Press Ganey (DSU) Activity:: Activity as Tolerated Diet:: As Tolerated Discharge Orders Discharge Orders: Discharge Order (Routine); Ordered 01/20/23 Ordered By: Finesse Lyons DS: Diagnosis Discharge Diagnosis (1) Screening for colon cancer: Status: Acute
== END 2023-01-20 13:00 | disposition home or self-care (01) ==
PROVIDERS: PCP Nurse Practitioner Family; Visit Provider Student in an Organized Health Care Education/Training Program
PROC: 0DJD8ZZ Inspection of Lower Intestinal Tract, Via Natural or Artificial Opening Endoscopic (ICD-10-PCS; CPT 45378; principal; 2023-01-20 10:45)
DX: Z12.11 Encounter for screening for malignant neoplasm of colon (principal)
CPT/HCPCS: G0105; 00123

== ENCOUNTER 2023-02-10 10:00 | Outpatient (REF) | payer OTHER, MEDICAID, SELFPAY ==
[2023-02-10 16:00] LABS: Anion Gap 8.6 mmol/L (3-11); BUN 13 mg/dL (7-18); CO2 24.4 mmol/L (21.0-32.0); CREATININE 0.7 mg/dL (0.55-1.02); Calcium 8.6 mg/dL (8.5-10.1); Chloride 102 mmol/L (98-107); Estimated GFR 98.95 (mL/min/1.73m2); Glucose 86 mg/dL (74-106); HDL Cholesterol 54 mg/dL (40-60); LDL CHOLESTEROL 251 mg/dL (<100); Potassium 4.1 mmol/L (3.5-5.1); Sodium 135 mmol/L (136-145)
[2023-02-10 17:07] LABS: Creatine Kinase 45 U/L (26-192)
== END 2023-02-10 10:01 | disposition home or self-care (01) ==
LOC: NCHCN 10:00
PROVIDERS: PCP Nurse Practitioner Family; Visit Provider Nurse Practitioner Family
DX: E78.5 Hyperlipidemia, unspecified (principal)
CPT/HCPCS: 80048; 82550; 83721; 83718

== ENCOUNTER → 2023-03-25 02:11 | Outpatient (CLI) | payer OTHER, MEDICAID, SELFPAY ==
--- NOTE | 2023-03-25 | DI.CTLCSR_ITS ---
Exam(s) CT CHEST LUNG CANCER SCREEN EXAM: CT CHEST LUNG CANCER SCREEN CLINICAL HISTORY: SCREENING FOR LUNG CA,CURRENT SMOKER, F17.210. TECHNIQUE: Imaging Protocol: Low Dose Technique CONTRAST MATERIAL: None COMPARISON: No exams were available for comparison FINDINGS: CHEST: LUNGS: There are few bilateral tiny pulmonary granulomas noted. There are no ominous pulmonary nodul es. There are no confluent infiltrates. No pleural effusions. MEDIASTINUM: There is no obvious hilar nor mediastinal adenopathy. CARDIAC: Heart size is normal. There is no pericardial effusion.Caliber of the thoracic aorta is wit hin normal limits. OTHER: OSSEOUS: No significant osseous lesions.. IMPRESSION: 1. Tiny bilateral benign granulomas. No significant pulmonary nodules. 2. No infiltrates, pleural effusions, nor intrathoracic adenopathy 3. Lung RADS Cat 1 - Negative: No nodules and definitely benign nodules Lung-RADS 1.0 CATEGORIES: Category 0 - Prior chest CT exam(s) being located for comparison. Category 1 - Annual screening in 12 months. No nodules or definitely benign nodules. Category 2 - Annual screening in 12 months. Benign appearance. Nodules with low likelihood of becomin g active cancer. Category 3 - 6-month follow-up. Probably benign. Short-term follow-up suggested. Nodules with low lik elihood of becoming active cancer. Category 4A - 3-month follow-up and CT/PET if >8 mm in size. Suspicious finding. Findings which requi re additional testing. Category 4B - Findings which require additional testing and tissue sampling. Category 4X - Category 3 or 4 nodules with additional features or imaging findings that increases the suspicion of malignancy. Modifier S- Potentially clinically significant findings (non lung cancer) RADIATION DOSE DELIVERED: 71.42mGy.cm Total DLP DATA REPOSITORY: All CT scans at this facility are submitted to the National Radiology Data Registry (NRDR) Dose Index Registry (DIR) with the [employer] (ACR). RADIATION OPTIMIZATION: All CT scans at this facility use at least one of these dose optimization te chniques: automated exposure control; mA and/or kV adjustment per patient size (includes targeted exa ms where dose is matched to clinical indication); or iterative reconstruction.
== END ==
PROVIDERS: PCP Nurse Practitioner Family; Visit Provider Nurse Practitioner Family
DX: Z12.2 Encounter for screening for malignant neoplasm of respiratory organs (principal); F17.210 Nicotine dependence, cigarettes, uncomplicated; R91.8 Other nonspecific abnormal finding of lung field
CPT/HCPCS: 71271

== ENCOUNTER 2023-04-13 09:55 | Outpatient (REF) | payer OTHER, MEDICAID, SELFPAY ==
[2023-04-13 15:50] LABS: ALT 34 U/L (14-59); AST 19 U/L (15-37); BUN 22 mg/dL (7-18); CREATININE 0.9 mg/dL (0.55-1.02); Calcium 9.1 mg/dL (8.5-10.1); Chloride 103 mmol/L (98-107); Estimated GFR 73.19 (mL/min/1.73m2); Glucose 117 mg/dL (74-106); HDL Cholesterol 57 mg/dL (40-60); LDL CHOLESTEROL 156 mg/dL (<100); Potassium 4.5 mmol/L (3.5-5.1); Sodium 138 mmol/L (136-145)
[2023-04-13 16:25] LABS: Creatine Kinase 57 U/L (26-192)
== END 2023-04-13 09:56 | disposition home or self-care (01) ==
LOC: NCHCN 09:55
PROVIDERS: PCP Nurse Practitioner Family; Visit Provider Nurse Practitioner Family
DX: E78.5 Hyperlipidemia, unspecified (principal)
CPT/HCPCS: 80048; 82550; 83721; 83718; 84450; 84460

== ENCOUNTER → 2023-05-13 08:01 | Outpatient (BNVA) | payer OTHER, MEDICAID, SELFPAY | PROVIDERS: PCP Nurse Practitioner Family; Referring Provider Nurse Practitioner Family; Visit Provider Nurse Practitioner Adult Health | DX: G43.011 Migraine without aura, intractable, with status migrainosus (principal); G43.111 Migraine with aura, intractable, with status migrainosus | CPT/HCPCS: 99213 ==

== ENCOUNTER 2023-05-26 04:30 | Outpatient (RCR) | payer OTHER, MEDICAID, SELFPAY ==
[2023-05-26] MEDS: EPTINEZUMAB-JJMR 300 MG in Normal Saline 100 ML 206 MG IVPB (08:42)
[2023-05-26] MEDS: Normal Saline Flush 10 ML SYR IVP (08:42)
== END 2023-06-16 23:59 | disposition home or self-care (01) ==
LOC: INF 04:30
PROVIDERS: PCP Nurse Practitioner Family; Visit Provider Nurse Practitioner Adult Health
DX: G43.019 Migraine without aura, intractable, without status migrainosus (principal); G43.109 Migraine with aura, not intractable, without status migrainosus
CPT/HCPCS: 96365; J3032

== ENCOUNTER → 2023-06-11 04:45 | Outpatient (CLI) | payer OTHER, MEDICAID, SELFPAY ==
--- NOTE | 2023-06-11 | DI.RAD_ITS ---
Exam(s) XR CHEST 2V PA LATERAL EXAM: XR CHEST 2V PA LATERAL CLINICAL HISTORY: NASAL CONGESTION,R09.81,COUGH IN SMOKER TECHNIQUE: 2D digital imaging was performed of the chest. Two images were obtained. PA and lateral views were obtained. COMPARISON: CR,XR XR ABD FLAT UPRIGHT PA CHEST from 07/10/2021 FINDINGS: MEDIASTINUM: Normal. HEART: Normal. PULMONARY VASCULATURE: Normal. LUNGS: Clear. PLEURAL SPACE: No pleural effusion or pneumothorax. BONE:Within normal limits for the patient's age. OTHER FINDINGS:Normal. IMPRESSION: No acute pulmonary findings. DATA REPOSITORY: RADIATION DOSE DELIVERED:
== END ==
PROVIDERS: PCP Nurse Practitioner Family; Visit Provider Nurse Practitioner Family
DX: R09.81 Nasal congestion (principal); F17.210 Nicotine dependence, cigarettes, uncomplicated
CPT/HCPCS: 71046

== ENCOUNTER 2023-09-02 02:38 | Outpatient (RCR) | payer OTHER, MEDICAID, SELFPAY ==
[2023-09-02] MEDS: EPTINEZUMAB-JJMR 300 MG in Normal Saline 100 ML 206 MG IVPB (08:26)
[2023-09-02] MEDS: Normal Saline Flush 10 ML SYR IVP (08:26)
== END 2023-09-16 23:59 | disposition home or self-care (01) ==
LOC: INF 02:38
PROVIDERS: PCP Nurse Practitioner Family; Visit Provider Nurse Practitioner Adult Health
DX: G43.019 Migraine without aura, intractable, without status migrainosus (principal)
CPT/HCPCS: 96365; J3032

== ENCOUNTER → 2023-09-28 10:04 | Outpatient (BNVA) | payer OTHER, MEDICAID, SELFPAY | PROVIDERS: PCP Nurse Practitioner Family; Referring Provider Nurse Practitioner Family; Visit Provider Surgery | DX: R13.10 Dysphagia, unspecified (principal); K21.9 Gastro-esophageal reflux disease without esophagitis; R49.0 Dysphonia; F17.200 Nicotine dependence, unspecified, uncomplicated | CPT/HCPCS: 99215 ==

== ENCOUNTER 2023-10-15 02:53 | Outpatient (CLI) | payer OTHER, MEDICAID, SELFPAY ==
--- NOTE | 2023-10-15 09:12 | DI.RAD_ITS ---
Exam(s) XR LUMBAR SPINE COMPLETE EXAM: XR LUMBAR SPINE COMPLETE CLINICAL HISTORY: CHRONIC LOW BACK PAIN, M54.50. TECHNIQUE: 2D digital imaging was performed. Five views. COMPARISON: CR XR DEXA BONE DENSITY W/WO LISSETT from 03/21/2022 FINDINGS: BONES: No fracture or destructive lesion. Vertebral body heights are maintained. Mild facet hypert rophy identified . Mild degenerative changes of the SI joints. DISKS: Intervertebral disc spaces are maintained. ALIGNMENT: Lumbar spinal alignment is within normal limits. SOFT TISSUE: Normal. IMPRESSION: mild degenerative changes of the lumbar spine. DATA REPOSITORY: RADIATION DOSE DELIVERED:
--- NOTE | 2023-10-15 09:16 | DI.RAD_ITS ---
Exam(s) XR HIP RT COMPLETE AP PELVIS EXAM: XR HIP RT COMPLETE AP PELVIS CLINICAL HISTORY: PAIN RT HIP, M25.551, LOW BACK PAIN, M54.50. TECHNIQUE: 2D digital imaging was performed. Two views COMPARISON: CR THORACIC SPINE from 04/07/2017 FINDINGS: BONES: No acute fracture is present. No bony destructive lesion is seen. JOINTS: No dislocation present. Hip joint spaces are maintained. SOFT TISSUE: Normal. IMPRESSION: No acute abnormality. DATA REPOSITORY: RADIATION DOSE DELIVERED:
== END 2023-10-15 03:13 ==
LOC: DI 02:53
PROVIDERS: PCP Nurse Practitioner Family; Visit Provider Nurse Practitioner Family
DX: M25.551 Pain in right hip (principal); M54.50 Low back pain, unspecified; M51.36 Other intervertebral disc degeneration, lumbar region
CPT/HCPCS: 72110; 73502

== ENCOUNTER 2023-10-27 07:07 | Day surgery (SDC) | payer OTHER, MEDICAID, SELFPAY ==
[2023-10-27 07:48] VITALS: BP 144/94; PULSE 79; RESP 18; TEMP 36.3; O2SAT 97
[2023-10-27] MEDS: Lactated Ringers 1,000 ML 80 ML IV (08:02)
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
[2023-10-27] MEDS: Ondansetron 4 MG/2 ML VIAL IVP (08:24)
[2023-10-27 08:41] VITALS: BMI 32.8
--- NOTE | 2023-10-27 08:55 | ENDO_ITS ---
Date of service: 10/27/23 Time of Service: 09:32 Endoscopy Report FINDINGS: PROCEDURES PERFORMED: 1. EGD with biopsies PREOPERATIVE DIAGNOSIS: Dysphagia POSTOPERATIVE DIAGNOSIS: Chronic gastritis/gastropathy, small (subcentimeter) type I sliding hiatal hernia SURGEON: Karen Lyons MD INDICATION FOR PROCEDURE: 62-year-old woman who is an extensive smoker who has swallowing issues and was seen by ENT who told her she has acid reflux as the main contributor. FINDINGS: D2/D3 = normal D1/bulb = normal - no ulcers or inflammation Pylorus = normal Antrum = mildly irritated appearance, no ulcers, cold forceps biopsies were taken to rule out H. pylori routinely. I did not see any bile reflux. Body = mild inflammation, biopsies taken with cold forceps technique routinely Fundus = normal, no polyps Cardia = normal Hiatus = Hill grade 1, sub-centimeter small sliding hiatal hernia Distal esophagus = no visible inflammation, no visible esophagitis, no Dumont's, no stricture. Because of the presentation and complaints I took cold forceps biopsies despite normal appearance visually. Mid esophagus = normal in appearance. Cold forceps biopsies were taken here because of her symptoms. Proximal esophagus/hypopharynx/vocal cords = normal SURVEILLANCE-INTERVAL/FOLLOW-UP: Follow-up with PCP - no surveillance needed. Hiatal hernia / antireflux surgery is not an option as long as the patient is BMI greater than 30 and smoking Specimens: Yes EBL: Minimal COMPLICATIONS: None Procedure in detail: The patient gave written consent and was in agreement with the indications, the potential risks as well as the benefits of the procedure. The patient was taken to the endoscopy suite and laid on their left side. Anesthesia was given which was tolerated well. We performed a timeout and we are in agreement I started the procedure. A well-lubricated endoscope was gently and carefully advanced down the esophagus, into the stomach the scope was and through the pylorus into the duodenum. The scope was then slowly withdrawn with the above-noted findi ngs/interventions. The patient tolerated the procedure well and was then turned for colonoscopy (see separate procedure note).
--- NOTE | 2023-10-27 08:56 | COLE_ITS ---
Date of service: 10/27/23 Time of Service: 08:56 Colonoscopy Report Procedure Description: PROCEDURES PERFORMED: 1. Colonoscopy PREOPERATIVE DIAGNOSIS: Surveillance colonoscopy POSTOPERATIVE DIAGNOSIS: Incomplete colonoscopy, mild external hemorrhoids SURGEON: Karen Lyons MD INDICATION for procedure: The patient is a 62-year-old woman who has no family history of colon cancer but does have a personal history of hyperplastic polyps. She has no symptoms. Her last colonoscopy was incomplete due to poor prep. She is doing an extended prep this time but unfortunately admits to eating chicken yesterday. FINDINGS: Formed stool throughout the entire rectal vault and into the sigmoid colon. Procedure was aborted at this point. Mild external hemorrhoid disease is appreciated. SURVEILLANCE interval/FOLLOW-UP: Considering non-compliance with prep x2, recommend patient follow-up with PCP and discuss alternative options SPECIMENS: (None from colonoscopy, EGD has specimens) EBL: None COMPLICATIONS: None QUALITY of prep: Poor - formed stool throughout Procedure in detail: The patient gave written consent and was in agreement with the indications, the potential risks as well as the benefits of the procedure. She was turned from her upper endoscopy (see separate procedure note) and the colonoscopy portion of the procedure was started. Digital rectal and visual examination was performed. A well-lubricated flexible colonoscope was then introduced and passed without any notable difficulty into the sigmoid/descending colon. Formed stool is present throughout the entire rectal vault and up into the descending colon and we decided to abort the p rocedure. The patient tolerated the procedure well and was taken to the PACU in hemodynamically stable condition.
--- NOTE | 2023-10-27 08:58 | PDOC.DSDIS_ITS ---
Date of service: 10/27/23 Time of Service: 08:58 Discharge Plan Disposition Patient Disposition: Home Condition: Good Discharge Details Attending Provider: Finesse Lyons Primary Care Provider: Venessa Mehta Home Meds and New Rx's Prescriptions: No Action Vyepti 100 mg/mL solution 300 mg IV [id number] Rx Instructions: administer over 30 mins polyethylene glycol 3350 17 gram/dose powder 238 g PO ONCE Qty: 238 0RF Rx Instructions: take per colonoscopy instructions bisacodyl [Dulcolax (bisacodyl)] 5 mg tablet,delayed release (DR/EC) 5 mg PO ONCE Qty: 4 0RF Rx Instructions: take per colonoscopy instructions albuterol sulfate [ProAir HFA] 90 mcg/actuation HFA aerosol inhaler 1 - 2 puff Inhalation Q4-6H PRN Qty: 6.7 0RF Rx Instructions: Dispense whichever brand albuterol inhaler is covered by insurance hydroxyzine HCl 50 mg tablet 200 mg PO QHS gabapentin 600 mg tablet 800 mg PO QID Rx Instructions: Renee BARRON pantoprazole [Protonix] 20 mg tablet,delayed release (DR/EC) 20 mg PO BID prazosin 2 mg capsule 10 mg PO QHS atorvastatin 40 mg tablet 40 mg PO QHS lisinopril 10 mg tablet 10 mg PO DAILY ibuprofen 200 mg tablet 600 mg PO Q6H PRN trazodone 100 mg tablet 100 mg PO BID PRN quetiapine 50 mg tablet 50 mg PO HS Discharge Instructions Additional Instructions: FINDINGS: On upper endoscopy, some very mild inflammation was seen. This is non-specific and could be related to anything from medications you are ingesting, to other things such as alcohol and or other irritants related to diet such as spicy food. Stress can also cause mild inflammation as well as some other non- specific issues. Overall the findings were quite mild and would not explain any of your swallowing/throat symptoms. Everything that bothers you is probably 1 way or another related to smoking. You should consider quitting for no other reason other than to feel better. Biopsies were taken to assess for microscopic conditions. You will get called with those results in a couple of weeks. On your colonoscopy, the prep was once again completely and adequate such that we could not see anything at all. Unfortunately, because of this we decided to abort the colonoscopy part of the procedure since we would not be able to see anything. This is related to eating solid food in the last 48 hours. You should follow-up with your PCP to discuss alternative options for colon cancer screening. Stand Alone Forms: Colonoscopy Post Instructions Activity:: Activity as Tolerated Diet:: As Tolerated
--- NOTE | 2023-10-27 09:13 | STOM_PTH ---
PATIENT: Magdalene Shi LOC: [facility] U#:[id number] AGE/SX: 62/F ROOM: RE10/27/[address]: Finesse Lyons : 1960 BED: DIS: 10/27/2023 SPEC #: [id number] RECD: 10/27/23 12:48 STATUS: ISIDRO RE #: [id number] IVAN: 10/27/23 09:[address]: Finesse Lyons DEPT: Surgical Specimen RECD BY: Le Graham ENTERED: 10/27/23 12:50 SP TYPE: STOMACH OTHR DR: Venessa Schneider Tissues: 1 - STOMACH BIOPSY 2 - STOMACH BIOPSY 3 - ESOPHAGUS BIOPSY 4 - ESOPHAGUS BIOPSY Procedures: GROSS AND MICRO LEVEL 4 Comments: [id number]
[2023-10-27 09:36] VITALS: BP 127/98; PULSE 74; RESP 16; TEMP 36.5; O2SAT 96
[2023-10-27 09:55] VITALS: BP 141/98; PULSE 73; RESP 16; TEMP 36.5; O2SAT 97
--- NOTE | 2023-10-27 10:18 | W.ANESPOSTOP ---
Postoperative Evaluation Date, Time and Location Date Performed: 10/27/23 Time Performed: 10:19 Patient Location: Day [facility] Unit Vital Signs Most Recent Imported Vital Signs: Most Recent Vital Signs Temp Pulse Resp BP Pulse Ox 36.5 C 73 16 141/98 H 97 10/27/23 09:55 10/27/23 09:55 10/27/23 09:55 10/27/23 09:55 10/27/23 09:55 Pain Score Most Recent Pain Score: Most Recent Pain Score Pain Level 0 10/27/23 09:55 Assessment Mental Status: Awake (Alert & Oriented to Patient Baseline) Airway and Respiratory Function: Patent airway with normal (patient baseline) respiratory exam Cardiovascular Function: Hemodynamically Stable Hydration Status: Adequately Hydrated Nausea & Vomiting: No Nausea or Vomiting Pain: Pt. Denies Any Pain Peripheral Nerve Block: Patient did not receive a nerve block
== END 2023-10-27 10:25 | disposition home or self-care (01) ==
PROVIDERS: PCP Nurse Practitioner Family; Visit Provider Student in an Organized Health Care Education/Training Program
PROC: (CPT 45378; principal; 2023-10-27 09:00)
DX: Z12.11 Encounter for screening for malignant neoplasm of colon (principal); K64.8 Other hemorrhoids; K44.9 Diaphragmatic hernia without obstruction or gangrene; K29.70 Gastritis, unspecified, without bleeding; F17.210 Nicotine dependence, cigarettes, uncomplicated; K22.89 Other specified disease of esophagus
CPT/HCPCS: 45378; 43239; 00123; 88305; J2001; J2250; J2405; J2704

== ENCOUNTER → 2023-11-11 07:57 | Outpatient (BNVA) | payer OTHER, MEDICAID, SELFPAY | PROVIDERS: PCP Nurse Practitioner Family; Visit Provider Nurse Practitioner Adult Health | DX: G43.111 Migraine with aura, intractable, with status migrainosus (principal); G43.011 Migraine without aura, intractable, with status migrainosus; T74.91XA Unspecified adult maltreatment, confirmed, initial encounter; Z72.0 Tobacco use | CPT/HCPCS: 99214 ==

== ENCOUNTER 2023-12-02 03:12 | Outpatient (RCR) | payer OTHER, MEDICAID, SELFPAY ==
[2023-12-02] MEDS: EPTINEZUMAB-JJMR 300 MG in Normal Saline 100 ML 206 MG IVPB (08:06)
[2023-12-02] MEDS: Normal Saline Flush 10 ML SYR IVP ×2 (08:06→09:03)
== END 2023-12-17 23:59 | disposition home or self-care (01) ==
LOC: INF 03:12
PROVIDERS: PCP Nurse Practitioner Family; Visit Provider Nurse Practitioner Adult Health
DX: G43.019 Migraine without aura, intractable, without status migrainosus (principal)
CPT/HCPCS: 96365; J3032

== ENCOUNTER 2023-12-28 18:30 | Outpatient (REF) | payer OTHER, MEDICAID, SELFPAY ==
[2023-12-28 19:20] LABS: Abs Immature Grans 0.06 10^3/uL (0.0-0.06); Absolute Basophil Count 0.07 10^3/uL (0.0-0.2); Absolute Eosinophil Count 0.16 10^3/uL (0.0-0.7); Absolute Lymphocyte Count 2.53 10^3/uL (1.2-3.4); Absolute Monocyte Count 0.71 10^3/uL (0.1-0.8); Absolute Neutrophil Count 5.25 10^3/uL (1.2-6.7); Basophils % 0.8 %; Eosinophils % 1.8 %; HCT 41.8 % (36.0-46.0); HGB 13.6 g/dL (11.2-15.7); Immature Grans % 0.7 %; Lymphocytes % 28.8 %; MCH 29.1 pg (27.0-33.0); MCHC 32.5 % (32.0-36.0); MCV 89 fL (80-95); Monocytes % 8.1 %; Neutrophils % 59.8 %; Platelet Count 293 10^3/uL (130-400); RBC 4.68 10^6/uL (3.93-5.22); RDW 13.3 % (11.7-14.6); RDW-SD 43.9 fL; WBC 8.78 10^3/uL (4.4-10.8)
[2023-12-28 20:21] LABS: ALT 39 U/L (14-59); AST 36 U/L (15-37); Albumin 3.6 g/dL (3.4-5.0); Alkaline Phosphatase 96 U/L (46-116); BUN 9 mg/dL (7-18); Bilirubin, Total 0.22 mg/dL (0.2-1.0); CREATININE 0.9 mg/dL (0.55-1.02); Calcium 9.1 mg/dL (8.5-10.1); Calculated LDL 207 mg/dL (<100); Chloride 102 mmol/L (98-107); Cholesterol 350 mg/dL (<200); Estimated GFR 72.73 (mL/min/1.73m2); Folate 12.2 ng/mL (8.6-20.0); Glucose 109 mg/dL (74-106); HDL Cholesterol 64 mg/dL (40-60); Magnesium 2.1 mg/dL (1.8-2.4); Potassium 3.9 mmol/L (3.5-5.1); Sodium 139 mmol/L (136-145); TSH 5.25 uIU/mL (0.36-3.74); Total Protein 7.5 g/dL (6.4-8.2); Triglyceride 396 mg/dL (<150); Vitamin B12 489 pg/mL (193-986); Vitamin D 25 Total 20.5 ng/mL (30-100)
[2023-12-28 20:39] LABS: FREE T4 0.71 ng/dL (0.76-1.46)
[2023-12-28 20:41] LABS: Hemoglobin A1C 5.6 % (<5.7)
== END 2023-12-28 18:31 | disposition home or self-care (01) ==
LOC: NCHCN 18:30
PROVIDERS: PCP Nurse Practitioner Family; Visit Provider Nurse Practitioner Family
DX: E03.9 Hypothyroidism, unspecified (principal); Z13.1 Encounter for screening for diabetes mellitus; K21.9 Gastro-esophageal reflux disease without esophagitis; E78.5 Hyperlipidemia, unspecified; R53.83 Other fatigue
CPT/HCPCS: 80053; 80061; 82306; 82607; 82746; 83036; 83735; 84439; 84443; 85025

== ENCOUNTER 2024-01-12 01:36 | Outpatient (CLI) | payer OTHER, MEDICAID, SELFPAY ==
--- NOTE | 2024-01-12 | DI.RAD_ITS ---
Exam(s) XR FOOT RT COMPLETE EXAM: XR FOOT RT COMPLETE CLINICAL HISTORY: PAIN RT FOOT, M79.671. TECHNIQUE: 2D digital imaging was performed of the right foot. Three images were obtained. AP, obl ique and lateral views were obtained. COMPARISON: CR,XR XR FOOT RT COMPLETE from 11/30/2021 FINDINGS: BONES: No acute fracture is present. No bony destructive lesion is seen. There is a tiny enthesophyte at the posterior calcaneus. There is a moderate-sized plantar calcaneal spur. JOINTS: No dislocation present. There are mild degenerative changes seen in the foot including a smal l spur on the dorsal aspect of the head of the 1st metatarsal bone. SOFT TISSUE: Normal. IMPRESSION: Mild degenerative changes of the foot. DATA REPOSITORY: RADIATION DOSE DELIVERED:
== END 2024-01-12 01:56 ==
LOC: DI 01:36
PROVIDERS: PCP Nurse Practitioner Family; Visit Provider Nurse Practitioner Family
DX: M19.072 Primary osteoarthritis, left ankle and foot (principal)
CPT/HCPCS: 73630

== ENCOUNTER 2024-03-02 02:43 | Outpatient (RCR) | payer MEDICARE, MEDICAID, SELFPAY ==
[2024-03-02] MEDS: Normal Saline Flush 10 ML SYR IVP (08:15)
[2024-03-02] MEDS: EPTINEZUMAB-JJMR 300 MG in Normal Saline 100 ML 206 MG IVPB (08:26)
== END 2024-03-18 23:59 | disposition home or self-care (01) ==
LOC: INF 02:43
PROVIDERS: PCP Nurse Practitioner Family; Visit Provider Nurse Practitioner Adult Health
DX: G43.019 Migraine without aura, intractable, without status migrainosus (principal)
CPT/HCPCS: 96365; J3032

== ENCOUNTER 2024-03-11 13:32 | Outpatient (REF) | payer MEDICARE, MEDICAID, SELFPAY ==
[2024-03-11 15:54] LABS: ALT 29 U/L (14-59); AST 21 U/L (15-37); Albumin 3.5 g/dL (3.4-5.0); Alkaline Phosphatase 82 U/L (46-116); BUN 14 mg/dL (7-18); Bilirubin, Total 0.18 mg/dL (0.2-1.0); CREATININE 0.7 mg/dL (0.55-1.02); Calculated LDL 154 mg/dL (<100); Chloride 103 mmol/L (98-107); Cholesterol 253 mg/dL (<200); Estimated GFR 98.34 (mL/min/1.73m2); Glucose 83 mg/dL (74-106); HDL Cholesterol 58 mg/dL (40-60); Potassium 4.5 mmol/L (3.5-5.1); Sodium 138 mmol/L (136-145); Total Protein 6.9 g/dL (6.4-8.2); Triglyceride 205 mg/dL (<150)
== END 2024-03-11 13:33 | disposition home or self-care (01) ==
LOC: NCHCN 13:32
PROVIDERS: PCP Nurse Practitioner Family; Visit Provider Nurse Practitioner Family
DX: E78.5 Hyperlipidemia, unspecified (principal)
CPT/HCPCS: 80053; 80061

== ENCOUNTER 2024-04-05 02:39 | Outpatient (CLI) | payer MEDICARE, MEDICAID, SELFPAY ==
--- NOTE | 2024-04-05 | DI.US_ITS ---
Exam(s) US ABDOMEN LIMITED EXAM: US ABDOMEN LIMITED CLINICAL HISTORY: Chronic viral hepatitis C, B18.2 TECHNIQUE: Ultrasound abdomen performed using standard protocol. COMPARISON: US ABDOMEN ULTRASOUND (P) from 04/08/[address] CHEST LUNG CANCER SCREEN from 03/25/2023 FINDINGS: PANCREAS: The pancreas is echogenic. LIVER: The liver is diffusely echogenic consistent with fatty infiltration. Hepatopetal flow in the Portal Vein. The liver measures in 17.3 cm length. No evidence of a hepatic mass. GALLBLADDER: No evidence of cholelithiasis. No evidence of wall thickening. No pericholecystic fluid identified. BILIARY SYSTEM: Common bile duct measures < 7 mm. No intrahepatic biliary ductal dilation. BUCIO'S SIGN: Negative. RIGHT KIDNEY: Kidney is normal in size. No evidence of renal calculi. No evidence of hydronephrosis. No renal mass or cyst identified. ASCITES: None seen. IMPRESSION: Hepatomegaly and hepatic steatosis. No sonographic evidence of a hepatic mass. DATA REPOSITORY:
--- NOTE | 2024-04-05 | DI.CTLCSR_ITS ---
Exam(s) CT CHEST LUNG CANCER SCREEN EXAM: CT CHEST LUNG CANCER SCREEN CLINICAL HISTORY: Nicotine dependence, cigarettes, F17.210; screening TECHNIQUE: Imaging Protocol: Axial computed tomography images with coronal and sagittal reformatted images were created and reviewed. Lung Computer Aided Detection (CAD) was utilized. COMPARISON: CT CT CHEST LUNG CANCER SCREEN from 03/25/2023 FINDINGS: Tracheobronchial tree: Patent where visualized. No bronchiectasis. Pulmonary parenchyma: No consolidation or dominant measurable mass. No architectural distortion. Ther e is a calcified granuloma seen in the right middle lobe. Lung Nodules: There are few tiny noncalcified pulmonary nodules. The largest is in the medial aspect of the right upper lobe and measures 3 mm. (Series 2, image 41). Mediastinum and Marilyn: No dominant adenopathy or fluid collection. The esophagus is unremarkable. Thyroid gland: Unremarkable. Lymph nodes: Unremarkable. Pleura: No effusion or pneumothorax. Heart: The heart is not dilated. Single-vessel coronary artery calcification is present. No pericard ial effusion. Aorta: Thoracic aorta non-dilated.Atherosclerotic calcification is present. Upper abdomen: Unremarkable. Soft Tissues: Unremarkable. Bones: Within normal limits. IMPRESSION: Few tiny non calcified pulmonary nodules. Lung RADS Cat 2 - Benign Appearance / Behavior: Nodules with a very low likelihood of becoming a clin ically active cancer due to size or lack of growth Lung-RADS 1.0 CATEGORIES: Category 0 - Prior chest CT exam(s) being located for comparison. Category 1 - Annual screening in 12 months. No nodules or definitely benign nodules. Category 2 - Annual screening in 12 months. Benign appearance. Nodules with low likelihood of becomin g active cancer. Category 3 - 6-month follow-up. Probably benign. Short-term follow-up suggested. Nodules with low lik elihood of becoming active cancer. Category 4A - 3-month follow-up and CT/PET if >8 mm in size. Suspicious finding. Findings which requi re additional testing. Category 4B - Findings which require additional testing and tissue sampling. Suspicious finding. Category 4X - Category 3 or 4 nodules with additional features or imaging findings that increases the suspicion of malignancy. Modifier S- Potentially clinically significant finding. (Non lung cancer) RADIATION DOSE DELIVERED: 33.82mGy.cm Total DLP 33.82mGy.cmTotal DLP DATA REPOSITORY: All CT scans at this facility are submitted to the National Radiology Data Registry (NRDR) Dose Index Registry (DIR) with the [employer] ([employer]). RADIATION OPTIMIZATION: All CT scans at this facility use at least one of these dose optimization te chniques: automated exposure control; mA and/or kV adjustment per patient size (includes targeted exa ms where dose is matched to clinical indication); or iterative reconstruction.
== END 2024-04-05 02:59 ==
LOC: DI 02:39
PROVIDERS: PCP Nurse Practitioner Family; Visit Provider Nurse Practitioner Family
DX: F17.210 Nicotine dependence, cigarettes, uncomplicated (principal); Z12.2 Encounter for screening for malignant neoplasm of respiratory organs; R91.8 Other nonspecific abnormal finding of lung field; R16.2 Hepatomegaly with splenomegaly, not elsewhere classified; B18.2 Chronic viral hepatitis C
CPT/HCPCS: 71271; 76705

== ENCOUNTER → 2024-05-04 08:10 | Outpatient (BNVA) | payer MEDICARE, MEDICAID, SELFPAY | PROVIDERS: PCP Nurse Practitioner Family; Visit Provider Nurse Practitioner Adult Health | DX: G43.111 Migraine with aura, intractable, with status migrainosus (principal); G43.011 Migraine without aura, intractable, with status migrainosus; G43.901 Migraine, unspecified, not intractable, with status migrainosus | CPT/HCPCS: 99214; J1885; J2550; 96372 ==

== ENCOUNTER 2024-06-01 02:04 | Outpatient (RCR) | payer MEDICARE, MEDICAID, SELFPAY ==
[2024-06-01] MEDS: EPTINEZUMAB-JJMR 300 MG in Normal Saline 100 ML 206 MG IVPB (08:19)
[2024-06-01] MEDS: Normal Saline Flush 5 ML SYR IVP ×2 (08:19→09:13)
== END 2024-06-15 23:59 | disposition home or self-care (01) ==
LOC: INF 02:04
PROVIDERS: PCP Nurse Practitioner Family; Visit Provider Nurse Practitioner Adult Health
DX: G43.709 Chronic migraine without aura, not intractable, without status migrainosus (principal)
CPT/HCPCS: 96365; J3032

== ENCOUNTER 2024-09-29 03:37 | Outpatient (RCR) | payer MEDICARE, MEDICAID, SELFPAY ==
[2024-09-29] MEDS: EPTINEZUMAB-JJMR 300 MG in Normal Saline 100 ML 206 MG IVPB (11:52)
[2024-09-29] MEDS: Normal Saline Flush 10 ML SYR IVP (11:52)
== END 2024-10-16 23:59 | disposition home or self-care (01) ==
LOC: INF 03:37
PROVIDERS: PCP Nurse Practitioner Family; Visit Provider Nurse Practitioner Adult Health
DX: G43.709 Chronic migraine without aura, not intractable, without status migrainosus (principal)
CPT/HCPCS: 96365; J3032

== ENCOUNTER 2024-10-18 06:35 | Outpatient (CLI) | payer MEDICARE, MEDICAID, SELFPAY ==
--- NOTE | 2024-10-18 | DI.MRI_ITS ---
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 TECHNIQUE: Multiplanar multisequence MRI was performed. COMPARISON: CR XR KNEE 4 VIEW RIGHT from 09/20/2024 FINDINGS: BONES: There is no fracture or contusion pattern. Two screws are noted in the proximal tibia. JOINTS: Small to moderate-sized joint effusion is present. Articular cartilage: Patellofemoral joint: Overall cartilage thickness is normal. There are 2 tiny focal defect at the patellar apex, closer to the inferior pole. Medial femoral tibial joint: Mild cartilage thinning. Mild cartilage irregularity. Lateral femoral tibial joint: Articular cartilage is unremarkable. LIGAMENTS/TENDONS: Anterior Cruciate: Unremarkable. Posterior Cruciate: Unremarkable. Medial Collateral:Unremarkable. Lateral Collateral ligament complex: Unremarkable. Extensor mechanism: Unremarkable. Medial retinaculum: Unremarkable. Lateral retinaculum: Unremarkable. Popliteus: Unremarkable. MENISCI: The medial meniscus is unremarkable. The lateral meniscus is unremarkable. MUSCLES: Unremarkable. SOFT TISSUES: Unremarkable. IMPRESSION: There is a moderate-sized joint effusion. Focal cartilage defect at the patellar apex. Mild cartilage thinning and irregularity at the medial femoral tibial joint. DATA REPOSITORY:
== END 2024-10-18 06:55 ==
LOC: DI 06:35
PROVIDERS: PCP Nurse Practitioner Family; Visit Provider Specialist
DX: M22.2X1 Patellofemoral disorders, right knee (principal)
CPT/HCPCS: 73721

== ENCOUNTER → 2024-10-26 09:23 | Outpatient (BNVA) | payer MEDICARE, MEDICAID, SELFPAY | PROVIDERS: PCP Nurse Practitioner Family; Referring Provider Nurse Practitioner Family; Visit Provider Nurse Practitioner Adult Health | DX: G43.111 Migraine with aura, intractable, with status migrainosus (principal); G43.011 Migraine without aura, intractable, with status migrainosus | CPT/HCPCS: 99214; J1885; J2550; 96372 ==

== ENCOUNTER 2024-11-10 17:20 | Outpatient (REF) | payer MEDICARE, MEDICAID, SELFPAY ==
[2024-11-10 18:54] LABS: ALT 36 U/L (14-59); AST 22 U/L (15-37); Albumin 3.8 g/dL (3.4-5.0); Alkaline Phosphatase 89 U/L (46-116); Anion Gap 9.6 mmol/L (3-11); BUN 11 mg/dL (7-18); Bilirubin, Total 0.3 mg/dL (0.2-1.0); CO2 26.4 mmol/L (21.0-32.0); Calcium 9.0 mg/dL (8.5-10.1); Calculated LDL 234 mg/dL (<100); Chloride 101 mmol/L (98-107); Cholesterol 345 mg/dL (<200); Estimated GFR 98.34 (mL/min/1.73m2); Glucose 97 mg/dL (74-106); HDL Cholesterol 46 mg/dL (>or=50); Potassium 4.3 mmol/L (3.5-5.1); Sodium 137 mmol/L (136-145); TSH 2.53 uIU/mL (0.36-3.74); Total Protein 7.2 g/dL (6.4-8.2); Triglyceride 326 mg/dL (<150)
== END 2024-11-10 17:21 | disposition home or self-care (01) ==
LOC: NCHCN 17:20
PROVIDERS: PCP Nurse Practitioner Family; Visit Provider Nurse Practitioner Family
DX: E78.5 Hyperlipidemia, unspecified (principal); E03.9 Hypothyroidism, unspecified
CPT/HCPCS: 80053; 80061; 84443

== ENCOUNTER 2025-01-02 02:21 | Outpatient (RCR) | payer MEDICARE, MEDICAID, SELFPAY ==
[2025-01-02] MEDS: Normal Saline Flush 10 ML SYR IVP (08:20)
[2025-01-02] MEDS: EPTINEZUMAB-JJMR 300 MG in Normal Saline 100 ML 206 MG IVPB (08:20)
== END 2025-01-15 23:59 | disposition home or self-care (01) ==
LOC: INF 02:21
PROVIDERS: PCP Nurse Practitioner Family; Visit Provider Nurse Practitioner Adult Health
DX: G43.709 Chronic migraine without aura, not intractable, without status migrainosus (principal)
CPT/HCPCS: 96365; J3032

== ENCOUNTER 2025-01-09 13:04 | Outpatient (REF) | payer MEDICARE, MEDICAID, SELFPAY ==
[2025-01-09 17:24] LABS: Cholesterol 211 mg/dL (<200); HDL Cholesterol 55 mg/dL (>40)
== END 2025-01-09 13:05 | disposition home or self-care (01) ==
LOC: NCHCN 13:04
PROVIDERS: PCP Nurse Practitioner Family; Visit Provider Nurse Practitioner Family
DX: E78.5 Hyperlipidemia, unspecified (principal)
CPT/HCPCS: 80061